=== PATIENT | male | born 1940 | race Caucasian/White ===

== ENCOUNTER 2020-09-11 15:34 | Outpatient (CLI) | payer MEDICARE, BC, SELFPAY ==
[2020-09-11 16:29] LABS: Basophils % 0.6 %; Eosinophils # 0.1 10^3/uL (0.0-0.8); Eosinophils % 2.2 %; Hematocrit 38.5 % (42.0-52.0); Hemoglobin 13.1 g/dL (11.7-16.6); Lymphocytes # 1.4 10^3/uL (0.8-4.8); Lymphocytes % 27.3 %; Mean Corpuscular Hemoglobin 31.2 pg (28.0-34.0); Mean Corpuscular Volume 91.7 fL (80-94); Mean Platelet Volume 9.7 fL (7.4-10.4); Monocytes # 0.4 10^3/uL (0.2-0.9); Monocytes % 8.7 %; Neutrophils # 3.08 10^3/uL (1.8-7.7); Neutrophils % 60.8 %; Nucleated Red Blood Cells % 0 %; Platelet Count 166 10^3/cmm (130-400); Red Cell Distribution Width 12.5 % (12.1-15.1); White Blood Count 5.1 10^3/uL (4.0-10.0)
[2020-09-11 16:54] LABS: C Reactive Protein 3.3 mg/L (0.0-4.9)
[2020-09-11 17:39] LABS: Erythrocyte Sedimentation Rate 16 mm/hr (0-10)
[2020-09-12 12:13] LABS: Cyclic Citrullinated Peptide <16 UNITS
[2020-09-12 13:53] LABS: JO-1 Antibody <1.0 NEG AI (<1.0 NEG); SS A Ro Sjogrens Antibody <1.0 NEG AI (<1.0 NEG); SS-B/LA IGG <1.0 NEG AI (<1.0 NEG); Sm/RNP Antibody <1.0 NEG AI (<1.0 NEG)
[2020-09-12 17:43] LABS: Alternaria Alternata (M6) Ige <0.10 kU/L; Alternaria Class 0; Bermuda Class 0; Bermuda Grass (G2) Ige <0.10 kU/L; Cat Dander (E1) Ige 0.72 kU/L; Cat Dander Class 2; Common Ragweed (Short) (W1) Ig <0.10 kU/L; D. Farinae Class 1; Dermatophagoides Class 1; Dermatophagoides Farinae (D2) 0.47 kU/L; Dermatophagoides Pteronyssinus 0.45 kU/L; Dog Dander (E5) Ige 0.87 kU/L; Dog Dander Class 2; Elm (T8) Ige <0.10 kU/L; Elm Class 0; English Plantain (W9) Ige <0.10 kU/L; English Plantain Class 0; House Dust (Greer) (H1) Ige 0.12 kU/L; House Dust (Hollister- Stier) 0.26 kU/L; House Dust Class 0/1; Immunoglobulin E 200 kU/L (<OR=114); Johnson Grass (G10) Ige <0.10 kU/L; Johnson Grass Cl 0; June Grass Class 0; June Grass(Kentucky Blue) (G8) <0.10 kU/L; Lamb'S Quarters (Goose Foot) <0.10 kU/L; Lamb'S Quarters Class 0; Maple (Box Elder) (T1) Ige <0.10 kU/L; Maple Class 0; Meadow Fescue (G4) Ige <0.10 kU/L; Meadow Fescue Class 0; Mucor Racemosus Class 0; Oak (T7) Ige <0.10 kU/L; Oak Class 0; Orchard Grass (Cocksfoot) (G3) <0.10 kU/L; Penicillium Class 0; Penicillium Notatum (M1) Ige <0.10 kU/L; Perennial Rye Grass (G5) Ige <0.10 kU/L; Perennial Rye Grass Class 0; Ragweeed Class 0; Rough Marsh Elder (W16) Ige <0.10 kU/L; Rough Marsh Elder Class 0; Sweet Vernal Class 0; Sweet Vernal Grass (G1) Ige <0.10 kU/L; Timothy Grass (G6) Ige <0.10 kU/L; Timothy Grass Class 0
[2020-09-13 12:33] LABS: Anti-Double Strand DNA AB <1 IU/mL; SCL 70 <1.0 NEG AI (<1.0 NEG)
[2020-09-13 16:58] LABS: Immunoglobulin E 201 kU/L (<OR=114)
[2020-09-13 21:57] LABS: Aspergillus Fumigatus, Igg Ab, 50.3 mg/L (<=102)
== END 2020-09-11 15:35 | disposition home or self-care (01) ==
PROVIDERS: PCP Nurse Practitioner Family; Visit Provider Internal Medicine Pulmonary Disease
DX: J45.909 Unspecified asthma, uncomplicated (principal); M19.90 Unspecified osteoarthritis, unspecified site; R06.02 Shortness of breath
CPT/HCPCS: 36415; 82785; 85025; 85651; 86003; 86140; 86225; 86235; 86431

== ENCOUNTER 2020-09-17 14:53 | Emergency (ER) | payer MEDICARE, BC, SELFPAY ==
[2020-09-17 14:56] VITALS: BMI 21.7
[2020-09-17 15:06] VITALS: BP 142/84; PULSE 68; O2SAT 98
--- NOTE | 2020-09-17 15:06 | XR_ITS ---
WS: [id number] Exam: XR chest 2V* [id number] Date/Time of Exam: 09/17/2020 3:06 PM Reason For Exam: sob Comparison 02/04/2016. The lungs are hyperinflated and clear. Normal cardiomediastinal structures. Regional bony elements ar e intact. Spondylosis of the spine. XR/XR chest 2V* [id number] IMPRESSION: 1. Pulmonary hyperinflation which may indicate COPD. No acute process noted.
--- NOTE | 2020-09-17 15:06 | ECG_ITS ---
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 Measurements Intervals [place] Rate: 63 P: 64 VT: 220 QRS: 57 QRSD: 98 T: 52 QT: 399 QTc: 411 Interpretive Statements SINUS RHYTHM WITH FIRST DEGREE AV BLOCK NONSPECIFIC ST & T-WAVE ABNORMALITY Compared to ECG 02/04/2016 13:59:52 First degree AV block now present T-wave abnormality now present Sinus arrhythmia no longer present Electronically Signed On 09-17-2020 18:35:59 CDT by Anastacia Harris M.D. [id number] f
--- NOTE | 2020-09-17 15:15 | ED_ITS ---
HPI - SOB/Dyspnea General: Chief Complaint: Shortness of Breath/Dyspnea Stated Complaint: DIFFICULTY BREATHING Time Seen by Provider: 09/17/20 15:00 History of Present Illness: HPI Narrative: 80-year-old male presents with shortness of breath/difficulty breathing. Patient has a history of COPD. He was started on Advair 4 days ago. He reports that every time he takes Advair he develops shortness of breath. Patient reports that is better now. He is cesar lly on 2-1/2 L oxygen home O2. He is got no increased fever, cough, chills, chest pain or other systemic complaints. Associated symptoms: Deny abdominal pain, chest pain, fever(s), nausea, palpitations or vomiting Review of Systems Const: Denies: fever(s) or chills ENMT: Denies: throat pain Card: Denies: chest pain or palpitations Resp: Reports: dyspnea and other (Please see HPI) GI: Denies: abdominal pain, nausea or vomiting : Denies: flank pain, difficulty urinating or dysuria Musc: Denies: neck pain or back pain Skin/Breast: Denies: rash or pruritus Neuro: Denies: headache(s) or numbness in extremities Psych: Denies: anxiety or depression PFSH ED PFSH: Medical History COPD (chronic obstructive pulmonary disease) Hearing loss Hypertension Tinnitus Surgical History History of coronary artery stent placement Family History Other CAD (coronary artery disease) Hyperlipidemia Hypertension Denies family history of Diabetes Clotting disorder Dementia Psychiatric illness Chronic kidney disease (CKD) Suicide Anesthesia complication Bleeding disorder Family history of premature coronary artery disease Lung disease Cancer Stroke Social History Smoking and tobacco status: never smoked Second hand smoke exposure: No Smoking risk assessment/counseling performed?: Yes Alcohol intake: never Desire information about alcohol rehabilitation?: No Counseling given: No Desire information about substance/drug rehabilitation?: No Counseling given: No Lives independently: Yes Household members: spouse Marital status: service: Yes Current occupational status: retired and disabled Pets and animals: No History of recent travel: No Current gender identity: Male Physical Exam Const: COMMON NORMALS: no acute distress, average body habitus and alert GENERAL APPEARANCE: well kempt Chest: COMMONS NORMALS: normal inspection of the chest Resp: COMMON NORMALS: normal respiratory effort, No use of accessory muscles and clear to auscultation bilaterally EFFORT & INSPECTION: Yes able to speak in complete sentences AUSCULTATION: clear to auscultation bilaterally Cardio: COMMON NORMALS: regular rate and regular rhythm RATE: regular rate RHYTHM: regular rhythm GI: COMMON NORMALS: Soft to palpation and non-tender PALPATION: Yes Soft to palpation Extremity: COMMON NORMALS: normal to inspection, full ROM and capillary refill normal Neuro: COMMON NORMALS: no focal motor deficits and no sensory deficits noted SENSORIUM/ORIENTATION: Yes alert Psych: COMMON NORMALS: Normal thought process present, normal affect and speech normal APPEARANCE: Yes well kempt SPEECH: Yes normal speech THOUGHT PROCESS: Normal thought process present Skin: COMMON NORMALS: no rashes or lesions noted GENERAL SKIN EXAM: no rashes or lesions noted Course Vital Signs: Vital signs: Vital Signs Pulse Rate 69 09/17/20 16:56 Respiratory Rate 18 09/17/20 15:30 Blood Pressure 103/75 09/17/20 16:56 Pulse Oximetry 100 09/17/20 16:56 MDM - SOB/Dyspnea MDM Narrative: Medical decision making narrative: Patient is symptom-free throughout his stay in the ER. Patient's oxygen has been in the mid upper 90s while on his baseline 2-1/2 L oxygen. Discussed with patient that he can hold off on his Advair until he sees his primary care provider to review his symptoms. Patient stable and discharged home Lab Data: Attestation: I reviewed the patient's lab results. Labs: Lab Results 09/17/20 09/17/20 Range/Units 14:15 14:15 WBC 6.1 (4.0-10.0) 10^3/ uL RBC 4.22 (4.1-5.3) 10^6/u L Hgb 13.2 (11.7-16.6) g/dL Hct 37.2 L (42.0-52.0) % MCV 88.2 (80-94) fL MCH 31.3 (28.0-34.0) pg MCHC 35.5 (30.0-36.0) g/dL RDW 12.3 (12.1-15.1) % Plt Count 192 (130-400) 10^3/c mm MPV 10.3 (7.4-10.4) fL Neut % (Auto) 71.3 % Lymph % (Auto) 20.3 % [place] % (Auto) 6.5 % Eos % (Auto) 1.1 % Baso % (Auto) 0.5 % Neut # (Auto) 4.35 (1.8-7.7) 10^3/u L Lymph # (Auto) 1.2 (0.8-4.8) 10^3/u L [place] # (Auto) 0.4 (0.2-0.9) 10^3/u L Eos # (Auto) 0.1 (0.0-0.8) 10^3/u L Baso # (Auto) 0.0 (0.0-0.1) 10^3/u L Nucleated RBC % (a uto) 0 % Nucleated RBCs # 0.0 /100WBC Sodium 137 (136-145) mmol/L Potassium 4.0 (3.5-5.1) mmol/L Chloride 102 (98-107) mmol/L Carbon Dioxide 25 (22-29) mmol/L Anion Gap 14.0 (5-19) BUN 10 (8-23) mg/dL Creatinine 0.6 L (0.7-1.2) mg/dL GFR Calculation Not Reportable Glucose 125 H (65-115) mg/dL Calculated Osmolal ity 285 (285-295) mOsm/k g Calcium 8.6 (8.5-10.5) mg/dL Magnesium 2.3 (1.7-2.3) mg/dL Imaging Data^: CXR: Attestation: I personally reviewed and interpreted this imaging study as fo llows: My impression: No acute changes Radiologist's impression: COPD hyperinflation EKG Data^: EKG 1: EKG Interpretation Date: 09/17/20 EKG interpretation time: 15:22 Interpretation: Heart rate 63, sinus, MO interval 220, nonspecific ST changes, no acute finding Discharge Plan Discharge Patient Disposition: Home Clinical Impression: COPD (chronic obstructive pulmonary disease) Qualifiers: COPD type: emphysema Emphysema type: other Qualified Code(s): J43.8 - Other emphysema Condition: Stable Prescriptions: No Action metoprolol tartrate 25 mg tablet See Rx Instructions .ROUTE .COMPLEX RF: 0 budesonide 0.5 mg/2 mL suspension for nebulization 0.5 mg inhalation BID RF: 0 alprazolam 1 mg tablet 0.5 mg PO QID PRN (Reason: Anxiety) RF: 0 cholecalciferol (vitamin D3) 25 mcg (1,000 unit) tablet 25 mcg PO DAILY RF: 0 multivitamin [One Daily Multivitamin] Tablet 1 tab PO DAILY RF: 0 aspirin 81 mg tablet,chewable 81 mg PO DAILY RF: 0 montelukast [Singulair] 10 mg tablet 10 mg PO DAILY Qty: 30 RF: 3 hydrocodone-acetaminophen [Narvon] 10-325 mg tablet 1 tab PO Q8H PRN (Reason: Pain) RF: 0 Advair HFA 115-21 mcg/actuation HFA aerosol inhaler 2 puff inhalation BID Qty: 12 RF: 3 polyethylene glycol 3350 17 gram/dose powder 17 g PO DAILY PRN (Reason: Constipation) RF: 0 Discharge Orders: Discharge ED (Routine); Ordered 09/17/20 Ordered By: Benigno Lewis Referrals: Daniele,HILARIO Berrios [Primary Care Provider] - Discharge Diet: Usual diet Discharge Activity: Resume usual activity Patient Instructions: COPD - Emphysema, Opioid Safety Activity Restrictions/Additional Instructions: Hold your Advair until you follow-up with your primary care provider Follow-up with your primary care provider and 2 to 3 days Coding Level of Care Code ED 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
[2020-09-17 15:21] LABS: Basophils % 0.5 %; Eosinophils # 0.1 10^3/uL (0.0-0.8); Eosinophils % 1.1 %; Hematocrit 37.2 % (42.0-52.0); Hemoglobin 13.2 g/dL (11.7-16.6); Lymphocytes # 1.2 10^3/uL (0.8-4.8); Lymphocytes % 20.3 %; Mean Corpuscular HGB Conc 35.5 g/dL (30.0-36.0); Mean Corpuscular Hemoglobin 31.3 pg (28.0-34.0); Mean Corpuscular Volume 88.2 fL (80-94); Mean Platelet Volume 10.3 fL (7.4-10.4); Monocytes # 0.4 10^3/uL (0.2-0.9); Monocytes % 6.5 %; Neutrophils # 4.35 10^3/uL (1.8-7.7); Neutrophils % 71.3 %; Nucleated Red Blood Cells % 0 %; Platelet Count 192 10^3/cmm (130-400); Red Blood Count 4.22 10^6/uL (4.1-5.3); Red Cell Distribution Width 12.3 % (12.1-15.1); White Blood Count 6.1 10^3/uL (4.0-10.0)
[2020-09-17 15:30] VITALS: BP 138/76; PULSE 67; RESP 18; O2SAT 99
[2020-09-17 15:35] LABS: Blood Urea Nitrogen 10 mg/dL (8-23); Calcium 8.6 mg/dL (8.5-10.5); Carbon Dioxide 25 mmol/L (22-29); Chloride 102 mmol/L (98-107); Glucose 125 mg/dL (65-115); Magnesium 2.3 mg/dL (1.7-2.3); Osmolality Calculated 285 mOsm/kg (285-295); Sodium 137 mmol/L (136-145)
[2020-09-17 16:56] VITALS: BP 103/75; PULSE 69; O2SAT 100
== END 2020-09-17 16:55 | disposition home or self-care (01) ==
PROVIDERS: Emergency Provider Student in an Organized Health Care Education/Training Program; PCP Nurse Practitioner Family
DX: J43.8 Other emphysema (principal); Z79.82 Long term (current) use of aspirin; I10 Essential (primary) hypertension
CPT/HCPCS: 71046; 80048; 83735; 85025; 93005; 99283

== ENCOUNTER → 2021-03-07 11:20 | Outpatient (BNVA) | payer MEDICARE, BC, SELFPAY | PROVIDERS: PCP Nurse Practitioner Family; Visit Provider Internal Medicine Pulmonary Disease | DX: Z20.822 Contact with and (suspected) exposure to COVID-19 (principal); R91.8 Other nonspecific abnormal finding of lung field | CPT/HCPCS: 87635 ==

== ENCOUNTER 2021-03-14 13:38 | Outpatient (CLI) | payer MEDICARE, BC, SELFPAY ==
--- NOTE | 2021-03-14 14:14 | PFTS_ITS ---
Date of Study:03/14/21 Date of Dictation: MECHANICS: Forced vital capacity (FVC) is normal. Forced expiratory volume in one second (FEV1) is normal. FEV1/FVC is normal. FLOW VOLUME LOOP: Normal. LUNG VOLUMES: Total lung capacity (TLC) is mildly reduced. Residual volume (RV) is mildly reduced. DIFFUSING CAPACITY FOR CARBON MONOXIDE: Normal. INTERPRETATION: The prebronchodilator spirometry is normal. Lung volume measurements showed minimal restriction. Gas exchange (DLCO) is normal. MTDD
== END 2021-03-14 13:39 | disposition home or self-care (01) ==
LOC: RT 13:42
PROVIDERS: PCP Nurse Practitioner Family; Visit Provider Internal Medicine Pulmonary Disease
DX: R06.02 Shortness of breath (principal)
CPT/HCPCS: 94010; 94618; 94726; 94729

== ENCOUNTER 2021-06-02 13:31 | Emergency (ER) | payer MEDICARE, BC, SELFPAY ==
--- NOTE | 2021-06-02 13:39 | CTR_ITS ---
PROCEDURE INFORMATION: Exam: CT Abdomen And Pelvis With Contrast Exam date and time: 06/02/2021 1:39 PM Age: 80 years old Clinical indication: Nausea; Abdominal pain; Localized; Right lower quadrant (rlq); Additional info: Abd pain TECHNIQUE: Imaging protocol: Computed tomography of the abdomen and pelvis with contrast. Sagittal and coronal reformatted images were created and reviewed. Radiation optimization: All CT scans at this facility use at least one of these dose optimization techniques: automated exposure control; mA and/or kV adjustment per patient size (includes targeted exams where dose is matched to clinical indication); or iterative reconstruction. Contrast material: OMNI 300; Contrast volume: 95 ml; Contrast route: INTRAVENOUS (IV); COMPARISON: No relevant prior studies available. RADIATION DOSE METRICS: Total DLP (mGy-cm): 1569.13 FINDINGS: Limitations: Study limited by motion artifact. Lungs: Dependent atelectasis in the lungs bilaterally. Pleural spaces: No pleural effusion. Heart: Visualized portions of the heart are moderately enlarged. Extensive atherosclerotic calcification in the coronary arteries. Liver: The liver is unremarkable. Gallbladder and bile ducts: The gallbladder is unremarkable. No biliary ductal dilatation. Pancreas: The pancreas is unremarkable. No pancreatic ductal dilatation. Spleen: The spleen is unremarkable. Adrenal glands: The right and left adrenal glands are unremarkable. Kidneys and ureters: The right and left kidneys are unremarkable. The right and left ureters are unremarkable. Stomach and bowel: Small hiatal hernia. Calcification adjacent to the proximal sigmoid colon that may represent sequela of remote epiploic appendagitis. Fluid within the small bowel and colon without evidence of bowel wall thickening. Appendix: The appendix is visualized and is unremarkable. No findings to suggest acute appendicitis. Intraperitoneal space: No free intraperitoneal air. No ascites. No loculated fluid collections to suggest an abscess. Vasculature: Mild atherosclerotic changes in the visualized arteries. No evidence for aortic aneurysm or aortic dissection. Hepatic veins, portal veins, splenic vein, and SMV are patent. Incidental note of a retroaortic left renal vein. Lymph nodes: No lymphadenopathy. Urinary bladder: The bladder is unremarkable. Reproductive: Unremarkable as visualized. Bones/joints: Degenerative changes in the spine, sacroiliac joints, and hips. Moderate to severe spinal canal stenosis at L2-L3, L3-L4, and L4-L5. Multilevel foraminal stenosis of varying severity in the lumbar spine. Soft tissues: No acute abnormality in the extra-abdominal soft tissues. CT/CT abdomen pelvis w con* [id number] IMPRESSION: 1. Fluid within the small bowel and colon without evidence of bowel wall thickening. This may reflect viral gastroenteritis in the appropriate clinical situation. 2. Small hiatal hernia. 3. Incidental/nonacute findings are listed in the report.
[2021-06-02 13:40] VITALS: BP 143/77; PULSE 86; RESP 15; TEMP 36.8; O2SAT 97; BMI 23.7
--- NOTE | 2021-06-02 13:40 | ECG_ITS ---
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 Measurements Intervals [place] Rate: 79 P: 43 VT: 229 QRS: 1 QRSD: 99 T: 55 QT: 358 QTc: 412 Interpretive Statements SINUS RHYTHM WITH FIRST DEGREE AV BLOCK POSSIBLE RIGHT VENTRICULAR CONDUCTION DELAY [RSR (QR) IN V1/V2] NONSPECIFIC ST & T-WAVE ABNORMALITY Compared to ECG 09/17/2020 15:22:59 No significant changes Electronically Signed On 06-03-2021 5:09:03 [employer] by Anastacia Harris M.D. [email or web address].[employer]/store/[id number] f
[2021-06-02 15:04] LABS: Basophils % 0.3 %; Eosinophils % 0.4 %; Hematocrit 40.2 % (42.0-52.0); Hemoglobin 13.7 g/dL (11.7-16.6); Lymphocytes % 8.6 %; Mean Corpuscular HGB Conc 34.1 g/dL (30.0-36.0); Mean Corpuscular Hemoglobin 31.1 pg (28.0-34.0); Mean Corpuscular Volume 91.4 fl (80-94); Mean Platelet Volume 9.7 fL (7.4-10.4); Monocytes # 0.7 10^3/uL (0.2-0.9); Monocytes % 5.9 %; Neutrophils # 9.47 10^3/uL (1.8-7.7); Neutrophils % 84.5 %; Nucleated Red Blood Cells % 0 %; Platelet Count 164 10^3/cmm (130-400); Red Cell Distribution Width 11.9 % (12.1-15.1); White Blood Count 11.2 10^3/uL (4.0-10.0)
[2021-06-02] MEDS: pantoprazole 40 mg SDV 80 MG IVP (15:20)
[2021-06-02 15:24] LABS: Alanine Aminotransferase 13 U/L (0-41); Albumin Level 4.5 g/dL (3.5-5.2); Alkaline Phosphatase 59 IU/L (40-130); Anion Gap 19.8 (5-19); Aspartate Amino Transferase 19 U/L (0-40); Blood Urea Nitrogen 16 mg/dL (8-23); Calcium 9.9 mg/dL (8.5-10.5); Carbon Dioxide 25 mmol/L (22-29); Chloride 102 mmol/L (98-107); Globulin 2.3 g/dL (1.3-4.6); Glucose 121 mg/dL (65-115); Lipase 15 U/L (13-60); Osmolality Calculated 298 mOsm/kg (285-295); Potassium 3.8 mmol/L (3.5-5.1); Sodium 143 mmol/L (136-145); Total Bilirubin 1.4 mg/dL (0.15-1.2); Total Protein 6.8 g/dL (6.6-8.7)
[2021-06-02 15:25] LABS: Troponin(5th) Baseline 15 ng/L (0-15)
--- NOTE | 2021-06-02 15:40 | ECG_ITS ---
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 [id number]
--- NOTE | 2021-06-02 16:11 | W.ED.GENADLT ---
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 Patient says that for the last few days, he has noticed a right lower quadrant bulge and has had mild pain there. Patient says that the bulge is reducible. Patient denies any nausea/vomiting, fever/chills, decrease in flatus, melena/hematochezia. He has had multiple episodes of dark stools throughout the day. Denies any urinary complaints. Denies any chest pain, shortness breath, palpitation or lightheadedness. The RLQ abdominal pain became more painful yesterday night. Patient tells me he has had hernia related palin for the last year intermittently and is concerned that his mesh may be failing. Onset:3-4 days ago Duration:ongoing Location:home Severity:moderate Associated symptoms: Deny chest pain, dyspnea, nausea, rash, palpitations or vomiting Review of Systems Const: Denies: fever(s) or chills Eyes: Denies: change in vision ENMT: Denies: mouth pain Card: Denies: chest pain or palpitations Resp: Denies: dyspnea or non-productive cough GI: Reports: abdominal pain (RLQ abdominal pain and bludge) and other (+multiple episodes of dark loose stool); Denies: nausea, vomiting or diarrhea : Denies: dysuria Musc: Denies: extremity pain Skin/Breast: Denies: rash or new lesions Neuro: Denies: weakness in extremities Psych: Reports: other (Normal mood) Pancho/Lymph: Denies: easy bruising PFSH ED PFSH: Medical History COPD (chronic obstructive pulmonary disease) Hearing loss Hypertension Tinnitus Surgical History History of coronary artery stent placement Family History Other CAD (coronary artery disease) Hyperlipidemia Hypertension Denies family history of Diabetes Clotting disorder Dementia Psychiatric illness Chronic kidney disease (CKD) Suicide Anesthesia complication Bleeding disorder Family history of premature coronary artery disease Lung disease Cancer Stroke Social History Smoking and tobacco status: never smoked Second hand smoke exposure: No Smoking risk assessment/counseling performed?: Yes Alcohol intake: never Desire information about alcohol rehabilitation?: No Counseling given: No Desire information about substance/drug rehabilitation?: No Counseling given: No Lives independently: Yes Household members: spouse Marital status: service: Yes Current occupational status: retired and disabled Pets and animals: No History of recent travel: No Current gender identity: Male Physical Exam Const: COMMON NORMALS: alert HENMT: COMMON NORMALS: atraumatic HEAD & SCALP: atraumatic MOUTH: moist mucous membranes not abnormal Eye: COMMON NORMALS: EOMs intact bilaterally and conjunctivae normal CONJUNCTIVA: Yes conjunctivae normal Neck/C-Spine: COMMON NORMALS: full ROM and supple Resp: COMMON NORMALS: normal respiratory effort and clear to auscultation bilaterally AUSCULTATION: clear to auscultation bilaterally Cardio: COMMON NORMALS: regular rate RATE: regular rate GI: COMMON NORMALS: Soft to palpation and non-tender PALPATION: Yes Soft to palpation OTHER: No focal TTP. No abdominal buldge. No guarding rebound, guarding, rigidity. No CVA tenderness to percussion. Neg Broussard/Neg McBurney's point tenderness, no suprabupic tenderness to palpation. RECTAL: +hemoocult negative dark loose stool Extremity: COMMON NORMALS: full ROM Neuro: SENSORIUM/ORIENTATION: Yes alert MOTOR EXAM: No Abnormal motor strength present and Other motor observations present (no focal motor deficits) Psych: COMMON NORMALS: speech normal SPEECH: Yes normal speech MOOD & AFFECT: Yes euthymic mood Course Vital Signs: Vital signs: Vital Signs Temperature 98.2 F 06/02/21 13:40 Pulse Rate 99 06/02/21 18:21 Respiratory Rate 16 06/02/21 18:21 Blood Pressure 151/87 06/02/21 18:10 Pulse Oximetry 97 06/02/21 18:21 [facility] - General Adult Medical Decision Making 80-year-old male history of multiple mesh repairs hernia, CAD with stent x7 presents the emergency room with complaints of lower abdominal pain with abdominal swelling. On exam, patient is afebrile hemodynamically stable, no focal tenderness palpation, no palpable bulge. Hemoccult negative loose dark stool noted. Lab work-up showed white count 11.2. Hemoglobin appears to be stable at 13.7. Stool culture sent. Fecal occult positive. Patient is able to tolerate p.o. without difficulty. Patient status post IVF. Given reassuring hemoglobin and dark stool, and findings on CT consistent with colitis, this is likely GI infection and unlikely to be upper GI bleeding. I will stillrefer patient to repeat hemoglobin and possible EGD in the next week. CT of pelvis not show any focal findings of pathology. Considered broad diagnosis including appendicitis,diverticulitis, cholecystitis, colitis, volvulus, obstruction, ileus, UTI, and other abdominal pathology, however, given physical exam and workup today, there is low, although, not zero suspicion for these diagnoses. Patient advised and given appropriate return precations, including continued or new fever, vomiting, abdominal pain, or any other concerning signs or symptoms. Rx tylenol PRN abd pain, maalox/pepcid PRN dyspepsia, and zofran PRN nausea/vomiting I have given patient follow up with our case management manager to be seen by our PCP for diarrhea and loose stool and possible referral to get an EGD. Patient aware of a call from our case management manager to schedule for appointment(s) and verbalizes understanding of the importance of following up. Disposition: Discharge. Patient counseled regarding diagnostic impression, treatment plan. Patient given ED strict return precautions to return for continuation, worsening, or development of new symptoms. Instructed to f/u w/ PCP regarding symptoms today. Patient verbalized understanding. Lab Data : 06/02/21 14:46 06/02/21 14:46 Radiology Impressions Abdomen/Pelvis CT 06/02/21 13:39 IMPRESSION: 1. Fluid within the small bowel and colon without evidence of bowel wall thickening. This may reflect viral gastroenteritis in the appropriate clinical situation. 2. Small hiatal hernia. 3. Incidental/nonacute findings are listed in the report. Laboratory Results WBC 11.2 10^3/uL (4.0-10.0) H 06/02/21 14:46 RBC 4.40 10^6/uL (4.1-5.3) 06/02/21 14:46 Hgb 13.7 g/dL (11.7-16.6) 06/02/21 14:46 Hct 40.2 % (42.0-52.0) L 06/02/21 14:46 MCV 91.4 fl (80-94) 06/02/21 14:46 MCH 31.1 pg (28.0-34.0) 06/02/21 14:46 MCHC 34.1 g/dL (30.0-36.0) 06/02/21 14:46 RDW 11.9 % (12.1-15.1) L 06/02/21 14:46 Plt Count 164 10^3/cmm (130-400) 06/02/21 14:46 MPV 9.7 fL (7.4-10.4) 06/02/21 14:46 Neut % (Auto) 84.5 % 06/02/21 14:46 Lymph % (Auto) 8.6 % 06/02/21 14:46 Jerome % (Auto) 5.9 % 06/02/21 14:46 Eos % (Auto) 0.4 % 06/02/21 14:46 Baso % (Auto) 0.3 % 06/02/21 14:46 Neut # (Auto) 9.47 10^3/uL (1.8-7.7) H 06/02/21 14:46 Lymph # (Auto) 1.0 10^3/uL (0.8-4.8) 06/02/21 14:46 Jerome # (Auto) 0.7 10^3/uL (0.2-0.9) 06/02/21 14:46 Eos # (Auto) 0.0 10^3/uL (0.0-0.8) 06/02/21 14:46 Baso # (Auto) 0.0 10^3/uL (0.0-0.1) 06/02/21 14:46 Nucleated RBC % (auto) 0 % 06/02/21 14:46 Nucleated RBCs # 0.0 /100WBC 06/02/21 14:46 Sodium 143 mmol/L (136-145) 06/02/21 14:46 Potassium 3.8 mmol/L (3.5-5.1) 06/02/21 14:46 Chloride 102 mmol/L (98-107) 06/02/21 14:46 Carbon Dioxide 25 mmol/L (22-29) 06/02/21 14:46 Anion Gap 19.8 (5-19) H 06/02/21 14:46 BUN 16 mg/dL (8-23) 06/02/21 14:46 Creatinine 0.7 mg/dL (0.7-1.2) 06/02/21 14:46 GFR Calculation Not Reportable 06/02/21 14:46 Glucose 121 mg/dL (65-115) H 06/02/21 14:46 Calculated Osmolality 298 mOsm/kg (285-295) H 06/02/21 14:46 Calcium 9.9 mg/dL (8.5-10.5) 06/02/21 14:46 Total Bilirubin 1.4 mg/dL (0.15-1.2) H 06/02/21 14:46 AST 19 U/L (0-40) 06/02/21 14:46 ALT 13 U/L (0-41) 06/02/21 14:46 Alkaline Phosphatase 59 IU/L (40-130) 06/02/21 14:46 Troponin T Baseline 15 ng/L (0-15) 06/02/21 14:46 Troponin T 120 Minute 10.59 ng/L (0-15) 06/02/21 16:55 Delta Troponin T -4.41 ABS# (0-10) L 06/02/21 16:55 Total Protein 6.8 g/dL (6.6-8.7) 06/02/21 14:46 Albumin 4.5 g/dL (3.5-5.2) 06/02/21 14:46 Globulin 2.3 g/dL (1.3-4.6) 06/02/21 14:46 Lipase 15 U/L (13-60) 06/02/21 14:46 Coronavirus 229E (PCR) Not detected (NOT DETECT) 06/02/21 15:46 SARS-CoV-2 (PCR) Not detected (NOT DETECT) 06/02/21 15:46 Imaging Data Other Imaging: Radiologist's impression: [address] [address] [address] Scan Report Signed Patient: Shamar Thapa Unit #: [id number] : 1940 Age/Sex: 80 / M ADM Date: 06/02/21 Loc: ER Room/Bed: Attending Dr: Ordering Provider/Ordering MD: Yara Phillips MD Date of Service: 06/02/21 Procedure(s): CT abdomen pelvis w con* [id number] Accession Number(s): [id number] Report Number: [id number] PROCEDURE INFORMATION: Exam: CT Abdomen And Pelvis With Contrast Exam date and time: 06/02/2021 1:39 PM Age: 80 years old Clinical indication: Nausea; Abdominal pain; Localized; Right lower quadrant (rlq); Additional info: Abd pain TECHNIQUE: Imaging protocol: Computed tomography of the abdomen and pelvis with contrast. Sagittal and coronal reformatted images were created and reviewed. Radiation optimization: All CT scans at this facility use at least one of these dose optimization techniques: automated exposure control; mA and/or kV adjustment per patient size (includes targeted exams where dose is matched to clinical indication); or iterative reconstruction. Contrast material: OMNI 300; Contrast volume: 95 ml; Contrast route: INTRAVENOUS (IV);? COMPARISON: No relevant prior studies available. RADIATION DOSE METRICS: Total DLP (mGy-cm): 1569.13 FINDINGS: Limitations: Study limited by motion artifact. Lungs: Dependent atelectasis in the lungs bilaterally. Pleural spaces: No pleural effusion. Heart: Visualized portions of the heart are moderately enlarged. Extensive atherosclerotic calcification in the coronary arteries. Liver: The liver is unremarkable. Gallbladder and bile ducts: The gallbladder is unremarkable. No biliary ductal dilatation. Pancreas: The pancreas is unremarkable. No pancreatic ductal dilatation. Spleen: The spleen is unremarkable. Adrenal glands: The right and left adrenal glands are unremarkable. Kidneys and ureters: The right and left kidneys are unremarkable. The right and left ureters are unremarkable. Stomach and bowel: Small hiatal hernia. Calcification adjacent to the proximal sigmoid colon that may represent sequela of remote epiploic appendagitis. Fluid within the small bowel and colon without evidence of bowel wall thickening. Appendix: The appendix is visualized and is unremarkable. No findings to suggest acute appendicitis. Intraperitoneal space: No free intraperitoneal air. No ascites. No loculated fluid collections to suggest an abscess. Vasculature: Mild atherosclerotic changes in the visualized arteries. No evidence for aortic aneurysm or aortic dissection. Hepatic veins, portal veins, splenic vein, and SMV are patent. Incidental note of a retroaortic left renal vein. Lymph nodes: No lymphadenopathy. Urinary bladder: The bladder is unremarkable. Reproductive: Unremarkable as visualized. Bones/joints: Degenerative changes in the spine, sacroiliac joints, and hips. Moderate to severe spinal canal stenosis at L2-L3, L3-L4, and L4-L5. Multilevel foraminal stenosis of varying severity in the lumbar spine. Soft tissues: No acute abnormality in the extra-abdominal soft tissues. CT/CT abdomen pelvis w con* [id number] IMPRESSION: 1. Fluid within the small bowel and colon without evidence of bowel wall thickening. This may reflect viral gastroenteritis in the appropriate clinical situation. 2. Small hiatal hernia. 3. Incidental/nonacute findings are listed in the report. ? Dictated By: Vashti Her MD Signed By: Vashti Her MD Signed Date/Time: 06/02/21 180 DD/ 1339 Discharge Plan Discharge Patient Disposition: Home Clinical Impression: Abdominal pain, Diarrhea Condition: Stable Prescriptions: New Pepcid 20 mg tablet 20 mg PO BID PRN (Reason: abdominal pain) 10 Days Qty: 20 0RF Maalox Advanced 1,000-60 mg tablet,chewable 1 tab PO TID PRN (Reason: abdominal pain) 7 Days Qty: 21 0RF No Action metoprolol tartrate 25 mg tablet See Rx Instructions .ROUTE .COMPLEX 0RF Rx Instructions: 50 mg orally in the morning/ 25 mg orally in the evening budesonide 0.5 mg/2 mL suspension for nebulization 0.5 mg inhalation BID 0RF alprazolam 1 mg tablet 0.5 mg PO QID PRN (Reason: Anxiety) 0RF cholecalciferol (vitamin D3) 25 mcg (1,000 unit) tablet 25 mcg PO DAILY 0RF multivitamin [One Daily Multivitamin] Tablet 1 tab PO DAILY 0RF aspirin 81 mg tablet,chewable 81 mg PO DAILY 0RF Trelegy Ellipta 100-62.5-25 mcg blister with device 1 inh inhalation DAILY Qty: 60 3RF Advair HFA 115-21 mcg/actuation HFA aerosol inhaler 2 puff inhalation BID Qty: 12 3RF Rx Instructions: administer with spacer polyethylene glycol 3350 17 gram/dose powder 17 g PO DAILY PRN (Reason: Constipation) 0RF Milk of Magnesia 400 mg/5 mL Suspension 15 ml PO DAILY PRN (Reason: Constipation) 0RF hydrocodone-acetaminophen 10-325 mg Tablet 1 tab PO Q6H PRN (Reason: Pain) 0RF nitroglycerin 0.4 mg Tablet, Sublingual 0.4 mg SUBLINGUAL Q5M PRN (Reason: Chest Pain) 0RF Rx Instructions: do not exceed 3 doses per episode Discharge Orders: Discharge ED (Routine); Ordered 06/02/21 Ordered By: Yara Phillips Referrals: Daniele,HILARIO Berrios [Primary Care Provider] - Discharge Diet: Advance as tolerated Discharge Activity: Increase activity as tolerated Patient Instructions: Acute Diarrhea (ED), Abdominal Pain (ED) Activity Restrictions/Additional Instructions: Please come back if you have any worsening abdominal pain, fever or chills, nausea or vomiting, diarrhea, blood in the stool, inability hold down liquid or solids, or any new concerning complaints. Coding Level of Care Code ED Anesthesiologist/Physician for Chg Fwd Exam Comprehensive
[2021-06-02 17:39] LABS: Adenovirus Not Detected (NOT DETECT); Chlamydia Pneumoniae Not Detected (NOT DETECT); Coronavirus 229E,HKU1,NL63,OC4 Not Detected (NOT DETECT); Human Metapneumovirus Not Detected (NOT DETECT); Human Rhinovirus/Enterovirus Not Detected (NOT DETECT); Influenza A Not Detected (NOT DETECT); Influenza A H1 Not Detected (NOT DETECT); Influenza A H1-2009 Not Detected (NOT DETECT); Influenza A H3 Not Detected (NOT DETECT); Influenza B Not Detected (NOT DETECT); Mycoplasma Pneumoniae Not Detected (NOT DETECT); Parainfluenza Virus Type 1 Not Detected (NOT DETECT); Parainfluenza Virus Type 2 Not Detected (NOT DETECT); Parainfluenza Virus Type 3 Not Detected (NOT DETECT); Parainfluenza Virus Type 4 Not Detected (NOT DETECT); Respiratory Syncytial Virus A Not Detected (NOT DETECT); Respiratory Syncytial Virus B Not Detected (NOT DETECT); SARS-COV-2 Not Detected (NOT DETECT)
[2021-06-02] MEDS: iohexol 300 mg/mL 100 mL Btl IV (17:41)
[2021-06-02 18:08] VITALS: RESP 16; O2SAT 96
[2021-06-02] MEDS: morphine 4 mg/mL SDV 1 mL 2 MG IVP (18:08)
[2021-06-02 18:10] VITALS: BP 151/87; PULSE 103; RESP 16; O2SAT 97
[2021-06-02 18:21] VITALS: PULSE 99; RESP 16; O2SAT 97
[2021-06-02 18:30] LABS: Troponin 5 2HR 10.59 ng/L (0-15)
[2021-06-02 18:31] LABS: Troponin 5 2HR Delta -4.41 ABS# (0-10)
== END 2021-06-02 20:11 | disposition home or self-care (01) ==
PROVIDERS: Emergency Provider Emergency Medicine; PCP Nurse Practitioner Family
DX: R10.9 Unspecified abdominal pain (principal); R19.7 Diarrhea, unspecified; Z79.82 Long term (current) use of aspirin; J44.9 Chronic obstructive pulmonary disease, unspecified; I10 Essential (primary) hypertension; I25.10 Atherosclerotic heart disease of native coronary artery without angina pectoris; Z20.822 Contact with and (suspected) exposure to COVID-19
CPT/HCPCS: 74177; 80053; 82274; 83630; 83690; 84484; 85025; 87493; 87506; 87635; 93005; 96374; 96375; 99284; C9113; J2270; Q9967

== ENCOUNTER → 2021-06-25 10:26 | Outpatient (BNVA) | payer MEDICARE, BC, SELFPAY | PROVIDERS: PCP Nurse Practitioner Family; Visit Provider Nurse Practitioner Family | DX: J44.9 Chronic obstructive pulmonary disease, unspecified (principal); I10 Essential (primary) hypertension; R53.83 Other fatigue; Z11.59 Encounter for screening for other viral diseases; M79.10 Myalgia, unspecified site; M25.50 Pain in unspecified joint; M19.90 Unspecified osteoarthritis, unspecified site; J06.9 Acute upper respiratory infection, unspecified; R05.9 Cough, unspecified; J40 Bronchitis, not specified as acute or chronic; J02.9 Acute pharyngitis, unspecified | CPT/HCPCS: 80053; 82306; 82607; 82746; 83540; 83550; 85025; 85651; 86140; 86200; 86431; 86705; 86706; 86709; 86803; 87340 ==

== ENCOUNTER 2021-07-29 15:45 | Outpatient (CLI) | payer MEDICARE, BC, SELFPAY ==
--- NOTE | 2021-07-29 16:00 | CT_ITS ---
WS: [id number] CT CHEST TECHNIQUE: Noncontrast CT of the chest with coronal and sagittal reformatted images. CLINICAL INFORMATION: h/o pulm nodule COMPARISON: CT 2 DLP: 628.[address] scans at [facility] use at least one of these dose optimization techniques: automated e xposure control; mA and/or kV adjustment per patient size (includes targeted exams where dose is matc hed to clinical indication); or iterative reconstruction. FINDINGS: 4 noncalcified pulmonary nodules RIGHT lung apex range in size from 7 and 9 mm not significantly zaragoza ged since 2017. Moderate chronic emphysematous changes. Subsegmental atelectasis in the lung bases. N o focal consolidation or pleural fluid. A few calcified granulomas. Aortic calcification. Coronary calcification. Coronary stents. No axillary lymphadenopathy. Adrenal glands are normal. Small esophageal hiatal hernia. Ankylosis thoracic spine. CT/CT chest con [id number] IMPRESSION: 1. 4 noncalcified pulmonary nodules RIGHT lung apex unchanged since 2017 rangi ng in size from 7-9 mm. 2. Moderate chronic emphysematous changes. Slight bibasilar atelectasis. 3. No mediastinal or hilar lymphadenopathy. 4. Ankylosis thoracic spine.
== END 2021-07-29 15:46 | disposition home or self-care (01) ==
LOC: RAD 15:47
PROVIDERS: PCP Nurse Practitioner Family; Visit Provider Internal Medicine Pulmonary Disease
DX: R91.8 Other nonspecific abnormal finding of lung field (principal); M43.24 Fusion of spine, thoracic region
CPT/HCPCS: 71250

== ENCOUNTER 2021-11-12 01:39 | Emergency (ER) | payer MEDICARE, BC, SELFPAY ==
--- NOTE | 2021-11-12 01:41 | ED_ITS ---
HPI - Syncope General: Chief Complaint: Syncope Stated Complaint: snycope Time Seen by Provider: 11/12/21 01:40 History of Present Illness: Mr. Thapa is an 81-year-old gentleman with sig nificant past medical history of hearing loss, hypertension, hyperlipidemia, COPD with intermittently at home oxygen use, memory deficit who presents to the emergency department due to syncope. He reports being at his baseline health and after dinner had a new ice cream. Sometime later he subsequently developed rash which was itchy on his chest as well as swelling in his hands. He took 75 mg of Benadryl at home which improved symptoms. EMS was activated however patient declined transport and was observed for approximately 1 hour. After going to bed he had urged to have a bowel movement and subsequently had either full syncope or near syncope in the bathroom. He feels like he remembers the event and just felt weak however upon EMS arrival patient was hypotensive, pale, and appeared mildly confused. Patient has subsequently improved with IV fluids though feels cold all over. Denies similar episodes/allergic reactions in the past. Density symptoms at worst was moderate to severe. Course is improved. No other specific changes in health, exacerbating, or alleviating factors luke ntified. Onset (ago): hour(s) Prodromal symptoms: lightheaded Context: other Review of Systems General: Reports: 10 or more systems reviewed and unremarkable except in HPI and below PFSH ED PFSH: Medical History Anxiety Arthritis COPD (chronic obstructive pulmonary disease) Dehydration, mild Family history of Alzheimer's disease Hearing loss Hypertension Memory deficit Seborrheic keratosis Syncope Tinnitus Surgical History History of coronary artery stent placement Family History Other CAD (coronary artery disease) Hyperlipidemia Hypertension Memory deficit Denies family history of Diabetes Clotting disorder Dementia Psychiatric illness Chronic kidney disease (CKD) Suicide Anesthesia complication Bleeding disorder Family history of premature coronary artery disease Lung disease Cancer Stroke Social History Smoking and tobacco status: never smoked Second hand smoke exposure: No Smoking risk assessment/counseling performed?: Yes Alcohol intake: never Desire information about alcohol rehabilitation?: No Counseling given: No Desire information about substance/drug rehabilitation?: No Counseling given: No Lives independently: Yes Household members: spouse Marital status: service: Yes Current occupational status: retired and disabled Pets and animals: No History of recent travel: No Current gender identity: Male Physical Exam Const: COMMON NORMALS: patient oriented x3 and alert GENERAL APPEARANCE: cooperative and well developed HENMT: COMMON NORMALS: normocephalic and atraumatic HEAD & SCALP: normocephalic and atraumatic THROAT: posterior oropharynx normal OTHER: No luong signs or raccoon eyes. No hemotympanum. No otorrhea or rhinorrhea. Jaw alignment normal. Dentition baseline. No obvious bony step-offs. No septal hematoma. No evidence of ocular entrapment. Eye: COMMON NORMALS: conjunctivae normal CONJUNCTIVA: Yes conjunctivae normal SCLERA: sclerae normal Neck/C-Spine: COMMON NORMALS: supple GENERAL: Yes trachea midline Resp: COMMON NORMALS: normal respiratory effort and clear to auscultation bi laterally EFFORT & INSPECTION: Yes able to speak in complete sentences AUSCULTATION: clear to auscultation bilaterally Cardio: COMMON NORMALS: regular rate and regular rhythm RATE: regular rate RHYTHM: regular rhythm GI: COMMON NORMALS: Soft to palpation PALPATION: Yes Soft to palpation and No Tenderness to palpation present (GI) PERCUSSION: normal to percussion Extremity: GENERAL: Yes normal exam except as noted and No edema Neuro: COMMON NORMALS: patient oriented x3, CN's II-XII intact bilaterally, moves all extremities, no focal motor deficits and no sensory deficits noted SENSORIUM/ORIENTATION: Yes alert and No Orientation impaired Psych: COMMON NORMALS: mental status grossly normal and Normal thought process present THOUGHT PROCESS: Normal thought process present Course ED course: - Patient was seen and evaluated by me at bedside - Patient placed on cardiac monitors, IV access obtained - Initial evaluation notable for exam as exam as above - Labs and xrays personally interpreted by me. EKG with sinus rhythm, no STEMI. - Fluids and allergic reaction treatment given - Labs notable for no leukocytosis, normal hemoglobin. Metabolic panel without acute derangement. negative 2 hr troponin - Imaging notable for negative head ct. no traumatic injury on cervical spine CT. Chest x-ray without consolidation or pneumothorax. - Upon serial reexamination after treatment the patient was improved - Based on patient history, evaluation, and testing as interpreted the most likely cause of the patient's condition is syncope of unclear etiology. - The results of ED evaluation were discussed with the patient including possible disposition options. Patient comfortable with discharge with strict return cautions. I discussed prescriptions and/or symptomatic cares (if applicable) including appropriate and responsible use, followup plan, and return precautions. The patient verbalized understanding and felt safe for discharge. - Patient discharged in satisfactory condition. Note: Click bubbles or prepopulated hua in note writing are used for assistance with data collection and billing and are inherently more limited than narrative and other text portions of this note. Please use narrative for additional clinical history and defer to narrative/free test for any case of contradictory information. If information appears in only free text or click bubble it should be considered present or absent as reported. Please contact note magnetic tape typewriter operator for clarifications of clinical information or contradictory information. MDM is a brief summary, contradictory or erroneous seeming information should be clarified and full note should be reviewed. Vital Signs: Vital signs: Vital Signs Pulse Rate 90 11/12/21 08:15 Respiratory Rate 19 H 11/12/21 08:15 Blood Pressure 143/70 11/12/21 08:15 Pulse Oximetry 95 11/12/21 08:15 Oxygen Delivery Me thod 11/12/21 08:15 MDM - Syncope Medical Decision Making 81-year-old gentleman presenting with syncope in context of profound like a recent allergic reaction. Improved with treatment. Satisfactory for outpatient management with strict return cautions. Medical Records I reviewed the patient's medical records. Lab Data I reviewed the patient's lab results. : 11/12/21 01:57 11/12/21 01:57 Radiology Impressions Chest X-Ray 11/12/21 01:48 IMPRESSION: No acute findings. Head CT 11/12/21 01:49 IMPRESSION: No noncontrast CT evidence of posttraumatic intracranial abnormality. Cervical Spine CT 11/12/21 01:53 IMPRESSION: No fractures of the cervical spine. Degenerative changes of the cervical spine, most prominent at the C5-C6 level, as noted above. Laboratory Results WBC 9.1 10^3/uL (4.0-10.0) 11/12/21 01:57 RBC 4.42 10^6/uL (4.1-5.3) 11/12/21 01:57 Hgb 13.9 g/dL (11.7-16.6) 11/12/21 01:57 Hct 39.6 % (42.0-52.0) L 11/12/21 01:57 MCV 89.6 fl (80-94) 11/12/21 01:57 MCH 31.4 pg (28.0-34.0) 11/12/21 01:57 MCHC 35.1 g/dL (30.0-36.0) 11/12/21 01:57 RDW 12.2 % (12.1-15.1) 11/12/21 01:57 Plt Count 172 10^3/cmm (130-400) 11/12/21 01:57 MPV 9.9 fL (7.4-10.4) 11/12/21 01:57 Neut % (Auto) 83.4 % 11/12/21 01:57 Lymph % (Auto) 10.8 % 11/12/21 01:57 [place] % (Auto) 4.7 % 11/12/21 01:57 Eos % (Auto) 0.7 % 11/12/21 01:57 Baso % (Auto) 0.1 % 11/12/21 01:57 Neut # (Auto) 7.58 10^3/uL (1.8-7.7) 11/12/21 01:57 Lymph # (Auto) 1.0 10^3/uL (0.8-4.8) 11/12/21 01:57 [place] # (Auto) 0.4 10^3/uL (0.2-0.9) 11/12/21 01:57 Eos # (Auto) 0.1 10^3/uL (0.0-0.8) 11/12/21 01:57 Baso # (Auto) 0.0 10^3/uL (0.0-0.1) 11/12/21 01:57 Nucleated RBC % (auto) 0 % 11/12/21 01:57 Nucleated RBCs # 0.0 /100WBC 11/12/21 01:57 Specimen Type Arterial 11/12/21 05:50 Sample Site Radial, right 11/12/21 05:50 ABG pH 7.40 (7.35-7.45) 11/12/21 05:50 ABG pCO2 41.0 mmHg (35-45) 11/12/21 05:50 ABG pO2 67.7 mmHg (80.0-100.0) L 11/12/21 05:50 ABG HCO3 25.2 mmol/L (22-26) 11/12/21 05:50 ABG Base Excess 0.3 mmol/L (-2.0-2.0) 11/12/21 05:50 Chaim Test Pos 11/12/21 05:50 Hematocrit 42.7 % (42-52) 11/12/21 05:50 O2 Delivery Device None 11/12/21 05:50 Golf Course Architect ID Hensa 11/12/21 05:50 Sodium 135 mmol/L (136-145) L 11/12/21 01:57 Potassium 4.1 mmol/L (3.5-5.1) 11/12/21 01:57 Chloride 99 mmol/L (98-107) 11/12/21 01:57 Carbon Dioxide 24 mmol/L (22-29) 11/12/21 01:57 Anion Gap 16.1 (5-19) 11/12/21 01:57 BUN 23 mg/dL (8-23) 11/12/21 01:57 Creatinine 0.9 mg/dL (0.7-1.2) 11/12/21 01:57 GFR Calculation Not Reportable 11/12/21 01:57 Glucose 186 mg/dL (65-115) H 11/12/21 01:57 POC Glucose 174 mg/dL (70-110) H 11/12/21 05:59 Calculated Osmolality 289 mOsm/kg (285-295) 11/12/21 01:57 Calcium 9.1 mg/dL (8.5-10.5) 11/12/21 01:57 Total Bilirubin 0.5 mg/dL (0.15-1.2) 11/12/21 01:57 AST 17 U/L (0-40) 11/12/21 01:57 ALT 12 U/L (0-41) 11/12/21 01:57 Alkaline Phosphatase 66 IU/L (40-130) 11/12/21 01:57 Troponin T Baseline 18 ng/L (0-15) H 11/12/21 01:57 Troponin T 120 Minute 19.46 ng/L (0-15) H 11/12/21 04:10 Delta Troponin T 1.46 ABS# (0-10) 11/12/21 04:10 Troponin T Hi Sens 6Hr 40.62 ng/L (0-15) H 11/12/21 08:07 Troponin T Hi Sens 6Hr Delta 22.62 ng/L (0-12) H* 11/12/21 08:07 C-Reactive Protein 3.0 mg/L (0.0-4.9) 11/12/21 01:57 Total Protein 6.0 g/dL (6.6-8.7) L 11/12/21 01:57 Albumin 4.0 g/dL (3.5-5.2) 11/12/21 01:57 Globulin 2.0 g/dL (1.3-4.6) 11/12/21 01:57 Procalcitonin 0.05 ng/mL (0-0.5) 11/12/21 01:57 TSH 3.09 uIU/mL (0.27-4.20) 11/12/21 01:57 Urine Color Yellow (Yellow) 11/12/21 04:10 Urine Appearance Clear (CLEAR) 11/12/21 04:10 Urine pH 5 (5-7) 11/12/21 04:10 Ur Specific [place] 1.020 (1.005-1.030) 11/12/21 04:10 Urine Protein Trace (Negative) 11/12/21 04:10 Urine Glucose (UA) 2+ (Normal) H 11/12/21 04:10 Urine Ketones 1+ (Negative) H 11/12/21 04:10 Urine Blood Neg (Negative) 11/12/21 04:10 Urine Nitrate Negative (Negative) 11/12/21 04:10 Urine Bilirubin Neg (Negative) 11/12/21 04:10 Urine Urobilinogen Norm mg/dL (Negative) 11/12/21 04:10 Ur Leukocyte Esterase Negative (Negative) 11/12/21 04:10 Urine RBC 0-4 /hpf (0-2) H 11/12/21 04:10 Urine WBC 0-4 /hpf (0-5) H 11/12/21 04:10 Ur Squamous Epith Cells 0-4 /hpf (0-5) H 11/12/21 04:10 Amorphous Sediment Trace /hpf 11/12/21 04:10 Urine Bacteria Trace /hpf (NONE) 11/12/21 04:10 Urine Mucus 2+ /hpf 11/12/21 04:10 Discharge Plan Discharge Patient Disposition: Home Clinical Impression: Syncope, Hypotension, Allergic reaction, Dehydration, mild Condition: Stable Prescriptions: New epinephrine [EpiPen 2-Denilson] 0.3 mg/0.3 mL auto-injector 0.3 mg IM Q15M PRN (Reason: anaphylaxis) Qty: 2 2RF Rx Instructions: for 3 doses No Action aspirin 81 mg tablet,chewable 81 mg PO DAILY alprazolam 1 mg tablet 0.5 mg PO QID PRN (Reason: Anxiety) 30 Days Qty: 120 0RF cholecalciferol (vitamin D3) 50 mcg (2,000 unit) capsule 50 mcg PO DAILY 90 Days Qty: 90 1RF metoprolol tartrate 25 mg tablet See Rx Instructions .ROUTE .COMPLEX Qty: 270 1RF Rx Instructions: 50 mg orally in the morning/ 25 mg orally in the evening PNV no.154-iron fumarate-folic 27 mg iron- 1 mg tablet 2 tab PO DAILY 90 Days Qty: 180 1RF Trelegy Ellipta 100-62.5-25 mcg blister with device 1 inh inhalation DAILY Qty: 60 3RF budesonide 0.5 mg/2 mL suspension for nebulization 0.5 mg inhalation BID Qty: 60 3RF polyethylene glycol 3350 17 gram/dose powder 17 g PO DAILY PRN (Reason: Constipation) magnesium hydroxide [Milk of Magnesia] 400 mg/5 mL Suspension 15 ml PO DAILY PRN (Reason: Constipation) hydrocodone-acetaminophen 10-325 mg Tablet 1 - 2 tab PO Q6H PRN (Reason: Pain) nitroglycerin 0.4 mg Tablet, Sublingual 0.4 mg SUBLINGUAL Q5M PRN (Reason: Chest Pain) Rx Instructions: do not exceed 3 doses per episode cyanocobalamin (vitamin B-12) 1,000 mcg capsule 1,000 mcg PO DAILY Qty: 90 4RF Calcium 600 + D(3) 600 mg-10 mcg (400 unit) tablet 1 tab PO DAILY Qty: 90 0RF Discharge Orders: Discharge ED (Routine); Ordered 11/12/21 Ordered By: Thomas Atwood Referrals: Shoshana Stroud NP [Primary Care Provider] - Discharge Diet: Usual diet Discharge Activity: Resume usual activity Patient Instructions: Dehydration (ED), Syncope (ED), General Allergic Reaction (ED) Activity Restrictions/Additional Instructions: Thank you for visiting the emergency department. You were seen and evaluated for syncope and low blood pressure. The exact cause of your symptoms is u nclear. Allergic reaction may contribute at this and you will be treated for allergic reaction. Please follow-up with your primary care provider within the next few days. Please return to the emergency department for recurrent symptoms or anything else that you are concerned about a feel needs emergency department evaluation. Coding Level of Care Code ED Desktop Publishing Associate for Jovan Lofton
[2021-11-12 01:43] VITALS: PULSE 84; RESP 18; O2SAT 97; BMI 23.0
--- NOTE | 2021-11-12 01:48 | ECG_ITS ---
[facility] Test Date: 2021-11-12 Pat Name: Shamar Thapa Department: Room: Gender: Male Housing Inspectors: : 1940 Requested By: Thomas Atwood Order Number: [id number] Shafer MD: Tony Colindres M.D. Measurements Intervals [place] Rate: 69 P: 48 PA: 233 QRS: 0 QRSD: 91 T: 51 QT: 365 QTc: 392 Interpretive Statements SINUS RHYTHM WITH FIRST DEGREE AV BLOCK NONSPECIFIC T-WAVE ABNORMALITY Compared to ECG 06/02/2021 16:58:13 First degree AV block now present T-wave abnormality now present Supraventricular rhythm no longer present Left ventricular hypertrophy no longer present ST (T wave) deviation no longer present Electronically Signed On 11-12-2021 16:31:07 CDT by Tony Colindres M.D. [id number]
--- NOTE | 2021-11-12 01:48 | XRR_ITS ---
PROCEDURE INFORMATION: Exam: XR Chest Exam date and time: 11/12/2021 3:16 AM Age: 81 years old Clinical indication: Other: Syncope; Prior surgery; Surgery type: Coronary stent; Patient HX: Witnessed syncopal episode at home. Patient slid to the ground from standing. TECHNIQUE: Imaging protocol: Radiologic exam of the chest. Views: 1 view. COMPARISON: CT chest [facility] [id number] 07/29/2021 4:21 PM FINDINGS: Lungs: Unremarkable. No consolidation. Pleural spaces: Unremarkable. No pleural effusion. No pneumothorax. Heart/Mediastinum: Unremarkable. No cardiomegaly. Bones/joints: No acute findings. XR/XR chest 1V portable [id number] IMPRESSION: No acute findings.
--- NOTE | 2021-11-12 01:49 | CTR_ITS ---
PROCEDURE INFORMATION: Exam: CT Head Without Contrast Exam date and time: 11/12/2021 3:07 AM Age: 81 years old Clinical indication: Syncope and collapse; Patient HX: Witnessed syncopal episode at home. Patient slid to the ground from standing. TECHNIQUE: Imaging protocol: Computed tomography of the head without contrast. Radiation optimization: All CT scans at this facility use at least one of these dose optimization techniques: automated exposure control; mA and/or kV adjustment per patient size (includes targeted exams where dose is matched to clinical indication); or iterative reconstruction. COMPARISON: No relevant prior studies available. RADIATION DOSE METRICS: Total DLP (mGy-cm): 955.08 FINDINGS: Brain: There is generalized brain parenchymal atrophy related to the patient's age. Mild nonspecific white matter changes are seen, consistent with small vessel disease. There are no intracranial masses, mass effect or midline shift. There is no cerebral edema. There is no subarachnoid hemorrhage. There are no intra-or extra-axial fluid collections, intraventricular or intraparenchymal hemorrhage. Intracranial atherosclerotic vascular calcifications are seen. No definite areas of low attenuation or min-white matter junction obscuration seen on the noncontrast CT to suggest definite subacute stroke - although the white matter disease limits assessment. Cerebral ventricles: The lateral, third and fourth ventricles appear unremarkable. The suprasellar and basilar cisterns appear unremarkable. Paranasal sinuses: The visualized sinuses are unremarkable. Mastoid air cells: The visualized mastoids are unremarkable. Orbital cavities: The visualized orbits are unremarkable. Bones/joints: No definite acute osseous or skull abnormalities seen. Soft tissues: Unremarkable. Notes: If there is further clinical concern for intracranial pathology, MRI of the brain may be performed for further assessment. CT/CT head wo con* [id number] IMPRESSION: No noncontrast CT evidence of posttraumatic intracranial abnormality.
--- NOTE | 2021-11-12 01:53 | CTR_ITS ---
PROCEDURE INFORMATION: Exam: CT Cervical Spine Without Contrast Exam date and time: 11/12/2021 3:11 AM Age: 81 years old Clinical indication: Other: Syncope; Patient HX: Witnessed syncopal episode at home. Patient slid to the ground from standing. TECHNIQUE: Imaging protocol: Computed tomography of the cervical spine without contrast. Radiation optimization: All CT scans at this facility use at least one of these dose optimization techniques: automated exposure control; mA and/or kV adjustment per patient size (includes targeted exams where dose is matched to clinical indication); or iterative reconstruction. COMPARISON: CT head wo con* [id number] 11/12/2021 3:07 AM RADIATION DOSE METRICS: Total DLP (mGy-cm): 282.97 FINDINGS: Vertebrae: There is normal alignment. Tiny posterior C4-C5 and small posterior C5-C6 degenerative osteophytes are seen. Medium-sized anterior degenerative osteophytes are seen at seen C4-C5 and C5-C6. There are no fractures or subluxations. The spinous processes are normal. The facet joint, spinolaminar and spinous process alignments are normal. The atlantodental alignment and craniocervical junction region appear unremarkable. Moderate atlantodental degenerative changes are seen. Soft tissues: Prevertebral soft tissues are unremarkable. The paraspinal soft tissues appear unremarkable. Lungs: Lung apices are normal. Discs/Spinal canal/Neural foramina: Moderate to severe C5-C6 disc space narrowing is seen. C2-C3: The disc is unremarkable. Mild bilateral facet arthropathy. No central spinal stenosis. No neuroforaminal narrowing. C3-C4: The disc is unremarkable. Mild bilateral facet arthropathy. No central spinal stenosis. No neuroforaminal narrowing. C4-C5: There is mild diffuse disc bulge with small central disc protrusion. Moderate bilateral facet arthropathy is seen with mild asymmetric left uncovertebral joint hypertrophy. No central spinal stenosis. Mild left foraminal stenosis. C5-C6: There is moderate diffuse disc bulge with small to medium-sized left paracentral disc osteophyte complex. Associated mild bilateral facet arthropathy seen with moderate uncovertebral joint hypertrophy. There appears to be [id number] central spinal stenosis with moderate to severe right and mild left foraminal stenosis. C6-C7: There is mild diffuse disc bulge with small central disc osteophyte complex. Associated [id number]-[id number] bilateral facet arthropathy, left more than right. Minimal central spinal stenosis with mild left foraminal stenosis. C7-T1: The disc is unremarkable. Moderate bilateral facet arthropathy with asymmetric mild left uncovertebral joint hypertrophy. No central spinal stenosis. [id number] left foraminal stenosis. Notes: MRI or CT myelogram may be performed for further evaluation, if there is clinical concern. CT/CT cervical spin wo con* [id number] IMPRESSION: No fractures of the cervical spine. Degenerative changes of the cervical spine, most prominent at the C5-C6 level, as noted above.
[2021-11-12 01:56] VITALS: BP 169/85; PULSE 72; RESP 16; O2SAT 100
[2021-11-12] MEDS: sodium chloride 0.9% 1,000 ML 999 ML IV (02:00)
[2021-11-12 02:03] LABS: Basophils % 0.1 %; Eosinophils # 0.1 10^3/uL (0.0-0.8); Eosinophils % 0.7 %; Hematocrit 39.6 % (42.0-52.0); Hemoglobin 13.9 g/dL (11.7-16.6); Lymphocytes % 10.8 %; Mean Corpuscular HGB Conc 35.1 g/dL (30.0-36.0); Mean Corpuscular Hemoglobin 31.4 pg (28.0-34.0); Mean Corpuscular Volume 89.6 fl (80-94); Mean Platelet Volume 9.9 fL (7.4-10.4); Monocytes # 0.4 10^3/uL (0.2-0.9); Monocytes % 4.7 %; Neutrophils # 7.58 10^3/uL (1.8-7.7); Neutrophils % 83.4 %; Nucleated Red Blood Cells % 0 %; Platelet Count 172 10^3/cmm (130-400); Red Blood Count 4.42 10^6/uL (4.1-5.3); Red Cell Distribution Width 12.2 % (12.1-15.1); White Blood Count 9.1 10^3/uL (4.0-10.0)
[2021-11-12] MEDS: famotidine 20 mg/2 mL INJ 40 MG IVP (02:11)
[2021-11-12 02:23] LABS: Troponin(5th) Baseline 18 ng/L (0-15)
[2021-11-12 02:30] LABS: Procalcitonin 0.05 ng/mL (0-0.5); Thyroid Stimulating Hormone 3.09 uIU/mL (0.27-4.20)
[2021-11-12 02:41] LABS: Alanine Aminotransferase 12 U/L (0-41); Alkaline Phosphatase 66 IU/L (40-130); Anion Gap 16.1 (5-19); Aspartate Amino Transferase 17 U/L (0-40); Blood Urea Nitrogen 23 mg/dL (8-23); Calcium 9.1 mg/dL (8.5-10.5); Carbon Dioxide 24 mmol/L (22-29); Chloride 99 mmol/L (98-107); Glucose 186 mg/dL (65-115); Osmolality Calculated 289 mOsm/kg (285-295); Potassium 4.1 mmol/L (3.5-5.1); Sodium 135 mmol/L (136-145); Total Bilirubin 0.5 mg/dL (0.15-1.2)
--- NOTE | 2021-11-12 03:48 | ECG_ITS ---
[facility] Test Date: 2021-11-12 Pat Name: Shamar Thapa Department: Room: Gender: Male Time Study Engineer: : 1940 Requested By: Thomas Atwood Order Number: [id number] Hollis MD: Tony Colindres M.D. Measurements Intervals [place] Rate: 82 P: 56 SD: 219 QRS: 47 QRSD: 91 T: 54 QT: 357 QTc: 418 Interpretive Statements SINUS RHYTHM WITH FIRST DEGREE AV BLOCK NONSPECIFIC T-WAVE ABNORMALITY Compared to ECG 11/12/2021 01:45:52 No significant changes Electronically Signed On 11-12-2021 16:35:50 CDT by Tony Colindres M.D. [id number]
[2021-11-12 04:27] VITALS: BP 148/77; PULSE 77; RESP 18; O2SAT 98
[2021-11-12 04:37] LABS: Troponin 5 2HR 19.46 ng/L (0-15)
[2021-11-12 04:41] LABS: Add Urine Culture? No; Add Urine Microscopic? YES; Amorphous Sediment Urine TRACE /hpf; Bacteria Urine TRACE /hpf; Bilirubin Urine Neg (Negative); Blood Urine Neg (Negative); Glucose Urine UA 2+ (Normal); Ketones Urine 1+ (Negative); Leukocyte Esterase Urine Negative (Negative); Mucus Urine 2+ /hpf; Nitrate Urine Negative (Negative); Protein Urine Trace (Negative); RBC Urine 0-4 /hpf (0-2); Squamous Epithelial Cell Urine 0-4 /hpf (0-5); Urine Appearance Clear (CLEAR); Urine Color Yellow (Yellow); Urobilinogen Urine Norm (Negative); WBC Urine 0-4 /hpf (0-5); pH Urine 5 (5-7)
[2021-11-12 04:42] LABS: Troponin 5 2HR Delta 1.46 ABS# (0-10)
[2021-11-12 04:52] VITALS: BP 132/78; BP 140/74; BP 141/72; PULSE 88; PULSE 98
[2021-11-12 05:59] LABS: Arterial Blood Gas Hematocrit 42.7 % (42-52); Base Excess ABG 0.3 mmol/L (-2.0-2.0); Blood Gas Allen Test Pos; Blood Gas Sample Site Radial, right; Blood Gas Sample Type Arterial; HCO3 ABG 25.2 mmol/L (22-26); PO2 ABG 67.7 mmHg (80.0-100.0)
[2021-11-12 06:06] LABS: Glucose Point of Care 174 mg/dL (70-110)
[2021-11-12 06:38] VITALS: BP 134/76; O2SAT 93
[2021-11-12] MEDS: HYDROcodone-acetaminophen 10-325 mg Tablet 1 TAB PO (08:02)
[2021-11-12 08:15] VITALS: BP 143/70; PULSE 90; RESP 19; O2SAT 95
[2021-11-12] MEDS: metoprolol tartrate 50 mg Tablet PO (08:22)
[2021-11-12 08:52] LABS: Troponin 5 6HR 40.62 ng/L (0-15)
[2021-11-12 09:21] LABS: Troponin 5 6HR Delta 22.62 ng/L (0-12)
--- NOTE | 2021-11-12 12:13 | PC.NURSE ---
called pt home and spoke to , informed her that doc would like for him to come back due to elevated trop, stated they would try to come back
[2021-11-13 03:48] LABS: Bacillus cereus group Not Detected (NOT DETECT); Bacillus subtillis group Not Detected (NOT DETECT); Corynebacterium Not Detected (NOT DETECT); Cutibacterium acnes (P.acnes) Not Detected (NOT DETECT); Enterococcus Not Detected (NOT DETECT); Enterococcus faecalis Not Detected (NOT DETECT); Enterococcus faecium Not Detected (NOT DETECT); Lactobacillus species Not Detected (NOT DETECT); Listeria Not Detected (NOT DETECT); Listeria monocytogenes Not Detected (NOT DETECT); Micrococcus Not Detected (NOT DETECT); Pan Candida Not Detected (NOT DETECT); Pan Gram-Negative Not Detected (NOT DETECT); Staphylococcus epidermidis Detected (NOT DETECT); Staphylococcus lugdunensis Not Detected (NOT DETECT); Staphylococcus species Detected (NOT DETECT); Streptococcus agalactiae Not Detected (NOT DETECT); Streptococcus anginosus group Not Detected (NOT DETECT); Streptococcus pneumoniae Not Detected (NOT DETECT); Streptococcus pyogenes Not Detected (NOT DETECT); Streptococcus species Not Detected (NOT DETECT); mecA Detected (NOT DETECT); mecC Not Detected (NOT DETECT)
== END 2021-11-12 08:39 | disposition home or self-care (01) ==
PROVIDERS: Emergency Provider Emergency Medicine; PCP Nurse Practitioner Family
DX: R55 Syncope and collapse (principal); I95.9 Hypotension, unspecified; T78.40XA Allergy, unspecified, initial encounter; E86.0 Dehydration; Z79.82 Long term (current) use of aspirin; J44.9 Chronic obstructive pulmonary disease, unspecified; I10 Essential (primary) hypertension
CPT/HCPCS: 36415; 36416; 36600; 70450; 71045; 72125; 80053; 81001; 82803; 82962; 84145; 84443; 84484; 85025; 86140; 87040; 87150; 87205; 93005; 93306; 99285; J2930; J3490; J7030

== ENCOUNTER 2021-11-12 15:11 | Observation (INO) | payer MEDICARE, BC, SELFPAY ==
[2021-11-12] VITALS (9 sets, daily range): BP systolic 115–149; BP diastolic 67–82; PULSE 70–81; RESP 12–19; TEMP 36.6; O2SAT 93–97; BMI 21.6
--- NOTE | 2021-11-12 16:50 | ECG_ITS ---
[facility] Test Date: 2021-11-12 Pat Name: Shamar Thapa Department: Room: Gender: Male Learning Support Specialist: : 1940 Requested By: Nato Fan Order Number: [id number] Hollis MD: Tony Colindres M.D. Measurements Intervals [place] Rate: 70 P: 47 AL: 229 QRS: 16 QRSD: 95 T: 36 QT: 371 QTc: 402 Interpretive Statements SINUS RHYTHM WITH FIRST DEGREE AV BLOCK Compared to ECG 11/12/2021 05:55:33 T-wave abnormality no longer present Electronically Signed On 11-12-2021 17:34:36 CDT by Tony Colindres M.D. [id number]
--- NOTE | 2021-11-12 16:50 | XRR_ITS ---
PROCEDURE INFORMATION: Exam: XR Chest Exam date and time: 11/12/2021 5:28 PM Age: 81 years old Clinical indication: Cough; Additional info: Dyspnea/cough TECHNIQUE: Imaging protocol: Radiologic exam of the chest. Views: 1 view. COMPARISON: CR (CHEST, ) 11/12/2021 3:16 AM FINDINGS: Lungs: Unremarkable. No consolidation. Pleural spaces: Unremarkable. No pleural effusion. No pneumothorax. Heart/Mediastinum: Unremarkable. No cardiomegaly. Bones/joints: Unremarkable. XR/XR chest 1V portable [id number] IMPRESSION: No acute findings.
--- NOTE | 2021-11-12 17:01 | W.ED.RECABL ---
HPI - Recheck/Abnormal Lab/Rx General: Chief Complaint: Recheck/Abnormal Lab/Rx Stated Complaint: abnormal test Time Seen by Provider: 11/12/21 16:48 Source: patient Mode of arrival: ambulatory History of Present Illness: 81-year-old male presents to the emergency room after being called for a positive lab. He was here this morning after presumed allergic reaction his second troponin and first troponin were done and were negative he was waiting for a ride had been discharged by the physician had seen him in the 6-hour troponin was drawn while he was waiting a care back with a positive delta of +22 patient was asked to return he returned back late this afternoon. He is very hard of hearing he denies any chest pain. He states otherwise he has been feeling fine he does have a known history of coronary artery disease however he has had multiple stents placed in the past he thinks the last time he had an evaluation of his heart was about 3 to 4 years ago. Stents he states were placed at [facility]. complaint: abnormal lab Initial visit (ago): hour(s) Returns today for: called because of abnormal lab/test Description of abnormal result: +22 positive delta troponin on a 6-hour test Context: called for abnormal lab result Associated symptoms: none Review of Systems Const: Denies: fever(s), chills, body aches, change in appetite, fatigue or malaise ENMT: Denies: throat pain, ear or mastoid pain, nasal discharge or nasal congestion Card: Denies: chest pain, edema, dyspnea on exertion or orthopnea Resp: Denies: dyspnea, productive cough or non-productive cough GI: Denies: abdominal pain, nausea, vomiting, hematemesis, coffee ground emesis, diarrhea, constipation, bloating, hematochezia or melena : Denies: flank pain, dysuria, urinary frequency or urinary urgency Skin/Breast: Denies: rash or pruritus PFSH ED PFSH: Medical History Anxiety Arthritis COPD (chronic obstructive pulmonary disease) Dehydration, mild Family history of Alzheimer's disease Hearing loss Hypertension Memory deficit Seborrheic keratosis Syncope Tinnitus Surgical History History of coronary artery stent placement Family History Other CAD (coronary artery disease) Hyperlipidemia Hypertension Memory deficit Denies family history of Diabetes Clotting disorder Dementia Psychiatric illness Chronic kidney disease (CKD) Suicide Anesthesia complication Bleeding disorder Family history of premature coronary artery disease Lung disease Cancer Stroke Social History Smoking and tobacco status: never smoked Second hand smoke exposure: No Smoking risk assessment/counseling performed?: Yes Alcohol intake: never Desire information about alcohol rehabilitation?: No Counseling given: No Desire information about substance/drug rehabilitation?: No Counseling given: No Lives independently: Yes Household members: spouse Marital status: service: Yes Current occupational status: retired and disabled Pets and animals: No History of recent travel: No Current gender identity: Male Physical Exam Const: GENERAL APPEARANCE: cooperative and comfortable ORIENTATION/CONSCIOUSNESS: Yes awake, Yes oriented to person, Yes oriented to place and Yes oriented to time HENMT: COMMON NORMALS: normocephalic and atraumatic HEAD & SCALP: normocephalic and atraumatic Resp: COMMON NORMALS: normal respiratory effort, No retractions, No use of accessory muscles and clear to auscultation bilaterally AUSCULTATION: clear to auscultation bilaterally Cardio: COMMON NORMALS: regular rate, regular rhythm and No murmurs present (Cardio) RATE: regular rate RHYTHM: regular rhythm GI: COMMON NORMALS: Soft to palpation and No hepatosplenomegaly present AUSCULTATION: Yes normoactive bowel sounds PALPATION: Yes Soft to palpation, No Tenderness to palpation present (GI), No Guarding due to palpation present (GI) and Yes No hepatosplenomegaly present Extremity: COMMON NORMALS: normal to inspection, capillary refill normal, no clubbing, cyanosis or edema, no calf tenderness and no pedal edema Neuro: SENSORIUM/ORIENTATION: Yes oriented to person, Yes oriented to place and Yes oriented to time Skin: COMMON NORMALS: no rashes or lesions noted GENERAL SKIN EXAM: no rashes or lesions noted Course Vital Signs: Vital signs: Vital Signs Temperature 98 F 11/12/21 20:41 Pulse Rate 65 11/13/21 15:21 Respiratory Rate 16 11/13/21 08:00 Blood Pressure 158/84 11/13/21 10:48 Pulse Oximetry 94 11/13/21 08:00 Oxygen Delivery Me thod 11/13/21 08:00 MDM - Recheck/Abnormal Lab/Rx Medical Decision Making Troponins positive. Patient still has little chest discomfort. Will admit his troponin repeated when he first got it has gone up a little further. Discussed with hospitalist orders written Medical Records I reviewed the patient's medical records. Lab Data I reviewed the patient's lab results. : 11/13/21 04:16 11/13/21 04:16 Radiology Impressions Chest X-Ray 11/12/21 16:50 IMPRESSION: No acute findings. Laboratory Results WBC 10.7 10^3/uL (4.0-10.0) H 11/12/21 17:00 RBC 3.72 10^6/uL (4.1-5.3) L 11/12/21 17:00 Hgb 11.8 g/dL (11.7-16.6) 11/12/21 17:00 Hct 34.3 % (42.0-52.0) L 11/12/21 17:00 MCV 92.2 fl (80-94) 11/12/21 17:00 MCH 31.7 pg (28.0-34.0) 11/12/21 17:00 MCHC 34.4 g/dL (30.0-36.0) 11/12/21 17:00 RDW 13.9 % (12.1-15.1) 11/12/21 17:00 Plt Count 159 10^3/cmm (130-400) 11/12/21 17:00 MPV 10.2 fL (7.4-10.4) 11/12/21 17:00 Neut % (Auto) 85.1 % 11/12/21 17:00 Lymph % (Auto) 9.0 % 11/12/21 17:00 [place] % (Auto) 5.1 % 11/12/21 17:00 Eos % (Auto) 0.1 % 11/12/21 17:00 Baso % (Auto) 0.2 % 11/12/21 17:00 Neut # (Auto) 9.07 10^3/uL (1.8-7.7) H 11/12/21 17:00 Lymph # (Auto) 1.0 10^3/uL (0.8-4.8) 11/12/21 17:00 [place] # (Auto) 0.5 10^3/uL (0.2-0.9) 11/12/21 17:00 Eos # (Auto) 0.0 10^3/uL (0.0-0.8) 11/12/21 17:00 Baso # (Auto) 0.0 10^3/uL (0.0-0.1) 11/12/21 17:00 Nucleated RBC % (auto) 0 % 11/12/21 17:00 Nucleated RBCs # 0.0 /100WBC 11/12/21 17:00 Sodium Cancelled 11/12/21 17:00 Potassium Cancelled 11/12/21 17:00 Chloride Cancelled 11/12/21 17:00 Carbon Dioxide Cancelled 11/12/21 17:00 Anion Gap Cancelled 11/12/21 17:00 BUN Cancelled 11/12/21 17:00 Creatinine Cancelled 11/12/21 17:00 GFR Calculation Cancelled 11/12/21 17:00 Glucose Cancelled 11/12/21 17:00 Calculated Osmolality Cancelled 11/12/21 17:00 Calcium Cancelled 11/12/21 17:00 Total Bilirubin Cancelled 11/12/21 17:00 AST Cancelled 11/12/21 17:00 ALT Cancelled 11/12/21 17:00 Alkaline Phosphatase Cancelled 11/12/21 17:00 Troponin T Baseline 63 ng/L (0-15) H 11/12/21 17:00 Total Protein Cancelled 11/12/21 17:00 Albumin Cancelled 11/12/21 17:00 Globulin Cancelled 11/12/21 17:00 Discharge Plan Discharge Patient Disposition: Admitted As Inpatient Admit Provider: Juan Francisco Bowman Clinical Impression: Elevated troponin, Allergic reaction, COPD (chronic obstructive pulmonary disease) Condition: Stable Discharge Diet: Cardiac Discharge Activity: Increase activity as tolerated Coding Level of Care Code ED Superintendent [employer] for Chg Fwd Exam Detailed
[2021-11-12 17:19] LABS: Basophils % 0.2 %; Eosinophils % 0.1 %; Hematocrit 34.3 % (42.0-52.0); Hemoglobin 11.8 g/dL (11.7-16.6); Mean Corpuscular HGB Conc 34.4 g/dL (30.0-36.0); Mean Corpuscular Hemoglobin 31.7 pg (28.0-34.0); Mean Corpuscular Volume 92.2 fl (80-94); Mean Platelet Volume 10.2 fL (7.4-10.4); Monocytes # 0.5 10^3/uL (0.2-0.9); Monocytes % 5.1 %; Neutrophils # 9.07 10^3/uL (1.8-7.7); Neutrophils % 85.1 %; Nucleated Red Blood Cells % 0 %; Platelet Count 159 10^3/cmm (130-400); Red Blood Count 3.72 10^6/uL (4.1-5.3); Red Cell Distribution Width 13.9 % (12.1-15.1); White Blood Count 10.7 10^3/uL (4.0-10.0)
[2021-11-12 17:55] LABS: Troponin(5th) Baseline 63 ng/L (0-15)
[2021-11-12] MEDS: enoxaparin 100 mg/mL Syringe 90 MG SUBCUT (18:18)
[2021-11-12] MEDS: nitroglycerin 1 gm/inch oint Pkt 0.5 INCH TOPICAL (18:18)
--- NOTE | 2021-11-12 18:42 | P.HP_ITS ---
Providers/Chief Complaint Primary Care Provider: Shoshana Stroud NP Chief Complaint: abnormal test History of Present Illness Shamar Thapa is a 81 year old male who was seen in the ER today for his syncopal event. In the morning his diagnostic work-up was unremarkable first and second troponin were not high he was discharged from the ER. However his 6- hour troponin came back with positive delta of 22 that brought hospital back to the patient. Patient has not experienced any chest pain however he does have significant history of coronary artery disease status post stents placed in the past, As per the patient tried a new ice cream and then developed skin rash which was very itchy he took Benadryl, after an hour had an urge to go to the bathroom for his bowel movement, at that time he developed generalized weakness fatigue and presyncopal symptoms. On EMS arrival he was hypotensive pale and confused. His symptoms improved with IV fluids. Diagnostics in the ER revealed normal CBC, BMP, delta troponin reviewed, EKG showing sinus rhythm with first-degree AV block When I evaluated the patient patient stated that he did not experience any syncopal event he just tripped over a basket which was present in the bathroom, he is stating that his would not believe him and asked him to go to the ER He consider himself fairly active Patient stating that he is able to do push-ups and walk Is not complaining of any active chest pain or shortness of breath No recent syncopal event Review of Systems Const: Denies: fever(s) Eyes: Denies: change in vision ENMT: Denies: throat pain Card: Reports: syncope; Denies: chest pain Resp: Denies: dyspnea GI: Denies: abdominal pain : Denies: flank pain Musc: Denies: neck pain Skin/Breast: Denies: rash Neuro: Denies: headache(s) Psych: Denies: anxiety Endo: Denies: polyuria Pancho/Lymph: Denies: easy bruising All/Imm: Denies: urticaria Medications/Allergies Home Medications Medication Instructions Recorded Confirmed Last Taken Type aspirin 81 mg chewable tablet 81 mg PO DAILY 09/11/20 11/12/21 11/12/21 History polyethylene glycol 3350 17 17 g PO DAILY PRN 09/17/20 11/12/21 Unknown History gram/dose oral powder hydrocodone 10 mg-acetaminophen 1 - 2 tab PO Q6H PRN 06/02/21 11/12/21 11/12/21 History 325 mg tablet magnesium hydroxide 400 mg/5 mL 15 ml PO DAILY PRN 06/02/21 11/12/21 06/02/21 History oral suspension (Milk of Magnesia) 0800 nitroglycerin 0.4 mg sublingual 0.4 mg SUBLINGUAL Q5M PRN 06/02/21 11/12/21 Unknown History tablet budesonide 0.5 mg/2 mL suspension 0.5 mg (2 mL) INHALATION BID #60 ml 08/13/21 11/12/21 11/12/21 Rx for nebulization fluticasone fur. 100 mcg-umeclid 1 inh INHALATION DAILY #60 ea 08/13/21 11/12/21 11/12/21 Rx 62.5 mcg-vilant 25 mcg inhalat.powder (Trelegy Ellipta) alprazolam 1 mg tablet 0.5 mg PO QID PRN 30 Days #120 tab 10/17/21 11/12/21 Unknown Rx cholecalciferol (vitamin D3) 50 50 mcg PO DAILY 90 Days #90 cap 10/17/21 11/12/21 11/12/21 Rx mcg (2,000 unit) capsule metoprolol tartrate 25 mg tablet See Rx Instructions .ROUTE 10/17/21 11/12/21 11/12/21 Rx .COMPLEX #270 tab vitamins no.154-ferrous 2 tab PO DAILY 90 Days #180 tab 10/17/21 11/12/21 11/12/21 Rx fumarate 27 mg-folic acid 1 mg tablet epinephrine 0.3 mg/0.3 mL 0.3 mg (0.3 mL) IM Q15M PRN #2 ea 11/12/21 11/12/21 Unknown Rx injection, auto-injector (EpiPen 2-Denilson) Allergies Allergy/AdvReac Type Severity Reaction Status Date / Time ciprofloxacin [From Cipro] Allergy Mild ALGY-Rash Verified 10/17/21 13:50 sulfamethoxazole Allergy Mild ALGY-Rash Verified 10/17/21 13:50 [From Bactrim] trimethoprim [From Bactrim] Allergy Mild ALGY-Rash Verified 10/17/21 13:50 PFSH Acute PFSH: Medical History COPD (chronic obstructive pulmonary disease) Hearing loss Hypertension Tinnitus Surgical History History of coronary artery stent placement Family History Other CAD (coronary artery disease) Hyperlipidemia Hypertension Memory deficit Denies family history of Diabetes Clotting disorder Dementia Psychiatric illness Chronic kidney disease (CKD) Suicide Anesthesia complication Bleeding disorder Family history of premature coronary artery disease Lung disease Cancer Stroke Social History Smoking and tobacco status: never smoked Second hand smoke exposure: No Smoking risk assessment/counseling performed?: Yes Alcohol intake: never Desire information about alcohol rehabilitation?: No Counseling given: No Desire information about substance/drug rehabilitation?: No Counseling given: No Lives independently: Yes Household members: spouse Marital status: service: Yes Current occupational status: retired and disabled Pets and animals: No History of recent travel: No Current gender identity: Male Vitals/I&O/Wt Last Vital Signs Temp 98 F 11/12/21 15:43 Pulse 75 11/12/21 18:30 Resp 18 11/12/21 18:30 BP 128/82 11/12/21 18:30 Pulse Ox 96 11/12/21 18:30 Weight last 48 hrs Weight 84.912 kg Physical Exam Narrative: Very hard of hearing Pleasant and cooperative Sinus rhythm first-degree AV block Hemodynamically stable Currently saturating well on room air Nonfocal neuro exam Abdomen soft No audible stridor or wheezing No signs of cellulitis Data : 11/13/21 04:16 11/13/21 04:16 A&P Assessment and plan (1) Syncope: Status: Acute (2) Dehydration, mild: Status: Acute (3) Seborrheic keratosis: Status: Acute (4) Anxiety: Status: Acute (5) Family history of Alzheimer's disease: Status: Acute (6) Memory deficit: Status: Acute (7) Arthritis: Status: Acute Plan Syncope Positive delta troponin No active chest pain Patient has been given therapeutic dose of Lovenox in the ER I would like to get carotid Doppler, echo, TSH, Lexiscan stress test tomorrow morning He is chest pain-free Hemodynamically stable Keep him n.p.o. after midnight He does have established coronary disease, will request records from [facility] History of COPD without acute exacerbation Continue DuoNeb Alzheimer's/memory deficit no acute exacerbation Mild signs of dehydration gentle fluid hydration Patient will be n.p.o. after midnight Full code He can have cardiac diet until midnight Attestations Medical Necessity Statement*: Anticipating discharge within 42 hours for work- up of syncope Time Spent in Patient Care: 40 Coding Level of Care Code Acute Electrical Line Mechanic for Chg Fwd Diagnoses Syncope R55 Dehydration, mild E86.0 Seborrheic keratosis L82.1 Anxiety F41.9 Family history of Alzheimer's disease Z82.0 Memory deficit R41.3 Arthritis M19.90
--- NOTE | 2021-11-12 18:50 | ECG_ITS ---
[facility] [place] Test Date: 2021-11-12 Pat Name: Shamar Thapa Department: Room: ICU03 Gender: Male Bright Cutter: : 1940 Requested By: Nato Fan Order Number: [id number] Hollis MD: Tony Colindres M.D. Measurements Intervals [place] Rate: 72 P: 45 IA: 233 QRS: 14 QRSD: 91 T: 58 QT: 372 QTc: 408 Interpretive Statements SINUS RHYTHM WITH FIRST DEGREE AV BLOCK NONSPECIFIC ST & T-WAVE ABNORMALITY Compared to ECG 11/12/2021 17:10:24 T-wave abnormality now present Electronically Signed On 11-12-2021 23:24:51 CDT by Tony Colindres M.D. [id number]
[2021-11-12 19:47] LABS: Alanine Aminotransferase 15 U/L (0-41); Albumin Level 4.2 g/dL (3.5-5.2); Alkaline Phosphatase 59 IU/L (40-130); Aspartate Amino Transferase 26 U/L (0-40); Blood Urea Nitrogen 17 mg/dL (8-23); Calcium 8.7 mg/dL (8.5-10.5); Carbon Dioxide 25 mmol/L (22-29); Chloride 101 mmol/L (98-107); Globulin 2.5 g/dL (1.3-4.6); Glucose 152 mg/dL (65-115); Osmolality Calculated 287 mOsm/kg (285-295); Sodium 136 mmol/L (136-145); Total Bilirubin 1.1 mg/dL (0.15-1.2); Total Protein 6.7 g/dL (6.6-8.7)
[2021-11-12 19:53] LABS: Troponin 5 2HR 97.83 ng/L (0-15)
[2021-11-12 20:03] LABS: Troponin 5 2HR Delta 34.83 ABS# (0-10)
--- NOTE | 2021-11-12 21:04 | USCV_ITS ---
Elier Shamar Age: 81 Gender: M : 1940 Exam Date: 11/12/2021 21:43 Ordering Phys: Juan Francisco Bowman MD Technologist: ROBYN [place] [facility] [place]: syncope Risk Factors: syncope Previous Vascular Surgery: None Right Brachial BP: / Left Brachial BP: / Right Left Velocity (cm/s) Spectral Plaque Velocity (cm/s) Spectral Plaque Syst/Diast Broadening Syst/Diast Broadening 78.30/ 14.30 None None Prox CCA 84.90 / 13.20 None None 65.10/ 19.80 None None Mid CCA 77.80 / 17.10 None None 52.60/ 11.80 None None Distal CCA 74.30 / 16.20 None None 61.80/ 15.10 Min Hetro Prox ICA 89.70 / 24.80 Min Hetro 69.00/ 19.70 Min Hetro Mid ICA 77.80 / 23.10 Min Hetro 61.10/ 15.80 Min Hetro Distal ICA 70.10 / 23.90 Min Hetro 67.00 Min None ECA 64.90 Min None 0.88 ICA/CCA 1.06 Antegrade Vertebral Antegrade 42.00/ 12.50 cm/s 41.00/ 11.00 cm/s Tri Subclavian Tri 121.3 95.90 0 FINDINGS Comparison: none available. No significant elevation of systolic or diastolic velocities. Waveforms are normal. Mixture of calcified and noncalcified plaque in the bifurcations. Antegrade vertebral arteries. CONCLUSIONS Bilateral ICA stenosis less than 50%. Mild atherosclerosis at the carotid bifurcations. Dr. Clara William DO (Electronically Signed) Final Date: 13 November 2021 08:11 S
--- NOTE | 2021-11-12 21:04 | USCV_ITS ---
Shamar Thapa Age: 81 Gender: M : 1940 Exam Date: 11/12/2021 22:10 Ordering Phys: Nato Barrett DO Technologist: ROBYN [place] [facility] [place]: syncope BP: 138 / 78 HR: 74 Rhythm: Sinus Technical Quality: Adequate MEASUREMENTS (Male / Female) Normal Values 2D ECHO LV Diastolic Diameter PLAX 4.0 cm 4.2 - 5.9 / 3.9 - 5.3 cm LV Systolic Diameter PLAX 2.6 cm IVS Diastolic Thickness 1.5 cm 0.6 - 1.0 / 0.6 - 0.9 cm IVS Systolic Thickness 1.7 cm LVPW Diastolic Thickness 1.3 cm 0.6 - 1.0 / 0.6 - 0.9 cm LVPW Systolic Thickness 1.8 cm LVOT Diameter 2.4 cm LV Ejection Fraction 2D Teich 62.5 % LV Ejection Fraction MOD 2C 58.1 % LV Ejection Fraction 2C AL 60.5 % LA Diameter 4.0 cm LA Width 3.6 cm LA Height 5.4 cm RA Width 3.6 cm RA Height 4.1 cm Aorta at Sinotubular Diameter 3.6 cm IVC Diameter 1.6 cm M-MODE Aortic Annulus Diameter 3.2 cm LA Ao Ratio MM 1.3 MV E Point Septal Separation 0.4 cm DOPPLER AV Peak Velocity 171.0 cm/s LVOT Peak Velocity 91.0 cm/s AV Area Cont Eq vti 2.5 cm squared AV Area Cont Eq pk 2.4 cm squared MV Peak Velocity 110.0 cm/s MV Area PHT 2.4 cm squared Mitral E to A Ratio 0.8 MV E' Velocity 46.5 cm/s Mitral E to MV E' Ratio 13.2 Mitral E to LV E' Lateral Ratio 17.0 Mitral E to LV E' Septal Ratio 10.8 TR Peak Velocity 239.5 cm/s TR Peak Gradient 22.9 mmHg TV Peak E Velocity 37.0 cm/s Right Atrial Pressure 5.0 mmHg Pulmonary Artery Systolic Pressu 27.9 mmHg PV Peak Velocity 108.0 cm/s RV Acceleration Time 0.1 s RV Ejection Time 0.4 s RV AcT/ET 0.4 FINDINGS Left Ventricle Normal left ventricular size and systolic function, EF 60 %. No regional wall motion abnormalities. Right Ventricle The right ventricle is normal in size and function. Right Atrium The right atrium is normal in size. Left Atrium The left atrium is normal in size. Mitral Valve Thickened mitral valve. Moderate mitral annular calcification. Aortic Valve Thickened aortic valve. Tricuspid Valve Trace tricuspid valve regurgitation. Pulmonic Valve Trace pulmonary valve regurgitation. Pericardium Normal pericardium without effusion. Aorta Normal ascending aorta dimension. IVC Normal inferior vena cava. CONCLUSIONS Normal left ventricular size and systolic function, EF 60 %. No regional wall motion abnormalities. Thickened mitral valve. Moderate mitral annular calcification. Thickened aortic valve. Trace tricuspid valve regurgitation. Trace pulmonary valve regurgitation. There is no pericardial effusion. There are no intracardiac masses. No similar previous studies are available for comparison Dr Barber Sr MD FACC (Electronically Signed) Final Date: 13 November 2021 14:15 S
[2021-11-12 21:14] LABS: Vitamin B12 290 pg/mL (232-1245)
[2021-11-12 21:15] LABS: Thyroid Stimulating Hormone 0.53 uIU/mL (0.27-4.20)
[2021-11-12] MEDS: metoprolol tartrate 25 mg Tablet PO (21:40)
--- NOTE | 2021-11-12 22:50 | ECG_ITS ---
[facility] Test Date: 2021-11-13 Pat Name: Shamar Thapa Department: Room: ICU03 Gender: Male Orthopaedic Physician Assistant: : 1940 Requested By: Nato Fan Order Number: [id number] Hollis MD: Barber Sr M.D. Measurements Intervals [place] Rate: 69 P: 52 MN: 259 QRS: 1 QRSD: 91 T: 28 QT: 367 QTc: 393 Interpretive Statements SINUS RHYTHM WITH FIRST DEGREE AV BLOCK Compared to ECG 11/12/2021 19:32:03 T-wave abnormality no longer present Electronically Signed On 11-13-2021 21:18:05 CDT by Barber Sr M.D. [id number]
[2021-11-12 23:24] LABS: Troponin 5 6HR 95.37 ng/L (0-15)
[2021-11-12 23:37] LABS: Troponin 5 6HR Delta 32.37 ng/L (0-12)
--- NOTE | 2021-11-13 02:08 | PC.NURSE ---
Blood cultures drawn on patient positive for gram + cocci in clusters. Results are not showing on current account. Patient was previously seen in ER with . Blood culture results are able to be accessed from that account. Physician notified of results and where to locate test results.
[2021-11-13 05:08] LABS: Basophils % 0.1 %; Hematocrit 35.8 % (42.0-52.0); Hemoglobin 11.8 g/dL (11.7-16.6); Lymphocytes # 0.9 10^3/uL (0.8-4.8); Lymphocytes % 10.5 %; Mean Platelet Volume 10.4 fL (7.4-10.4); Monocytes # 0.2 10^3/uL (0.2-0.9); Monocytes % 2.4 %; Neutrophils # 7.12 10^3/uL (1.8-7.7); Neutrophils % 86.8 %; Nucleated Red Blood Cells % 0 %; Platelet Count 151 10^3/cmm (130-400); Red Blood Count 3.81 10^6/uL (4.1-5.3); Red Cell Distribution Width 12.5 % (12.1-15.1); White Blood Count 8.2 10^3/uL (4.0-10.0)
[2021-11-13 05:30] LABS: Anion Gap 12.2 (5-19); Blood Urea Nitrogen 15 mg/dL (8-23); Calcium 8.7 mg/dL (8.5-10.5); Carbon Dioxide 26 mmol/L (22-29); Chloride 106 mmol/L (98-107); Glucose 191 mg/dL (65-115); Osmolality Calculated 296 mOsm/kg (285-295); Potassium 4.2 mmol/L (3.5-5.1); Sodium 140 mmol/L (136-145)
[2021-11-13 05:38] VITALS: PULSE 80
[2021-11-13] MEDS: metoprolol tartrate 50 mg Tablet PO (05:42)
--- NOTE | 2021-11-13 05:46 | NMCV_ITS ---
NM gurpreet perf SPECT r/s* [id number] Shamar Thapa Age: 81 Gender: M : 1940 Exam Date: 11/13/2021 05:46 Ordering Phys: Juan Francisco Bowman MD Technologist: CHRISTINA Weclh Exam Location: [facility] Indications: CHEST PAIN STRESS TEST Please see separate stress test report in [facility] for full findings IMAGE PROTOCOL Rest/Stress 1 Lexiscan Day Radiopharmaceutical Dose (mCi) Administration Site Administered by Rest: Tc-99m 10.7 IV CHRISTINA Smith Sestamibi Stress:Tc-99m 32.6 IV CHRISTINA Smith Sestamibi Rest: 13-Nov-2021 60 Discovery 630 Stress: 13-Nov-2021 30 Discovery 630 0.4mg Lexiscan. Supine position only as patient was unable to lay prone. SPECT RESULTS Technical Quality: Good Raw Data Analysis: Normal Image Corrections: No attenuation or motion correction applied Summed Stress Score: 2 Summed Rest Score: 3 Summed Difference Score: 0 PERFUSION FINDINGS A small area of slightly decreased tracer uptake was noted in the inferolateral region. No significant reversibility was noted in this region. FUNCTIONAL RESULTS (calculated via Gated SPECT) Stress Image LV EF (%): 67 Stress EDV (mL):95 TID: 1.1 Stress ESV (mL):31 FUNCTIONAL FINDINGS: Segmental wall motion analysis revealing no gross wall motion normalities IMPRESSIONS 1. Unremarkable Myocardial perfusion imaging 2. Normal LV ejection fraction of 67%. 3. Segmental wall motion analysis revealing no gross wall motion abnormalities 4. Normal LV volume Low probability for coronary ischemia, based on the above findings Dr Barber Sr MD [facility] (Electronically Signed) Final Date: 13 November 2021 14:18 S
--- NOTE | 2021-11-13 06:00 | ECG_ITS ---
[facility] Test Date: 2021-11-13 Pat Name: Shamar Thapa Department: Room: ICU03 Gender: Male Director Furniture: Katemaria Gonzalez : 1940 Requested By: Juan Francisco Bowman Order Number: [id number] Hollis MD: Barber Sr M.D. Interpretive Statements NAME OF STUDY: LEXISCAN SESTAMIBI STRESS TEST INDICATION: Chest Pain, PROCEDURE: At the baseline, the EKG revealed normal sinus rhythm with diffuse nonspecific ST-T changes. The baseline blood pressure was 155/86 mm Hg with a heart rate of 81 beats/min. Lexiscan was infused over a period of 20 seconds. A total of 0.4 milligrams of Lexiscan was infused. The stress phase was continued for a total of 5 minutes. Heart rate at the end of the stress phase was 90 with a blood pressure 159/86. The EKG at the peak infusion revealed no significant changes. Sestamibi was injected 20 seconds after the Lexiscan infusion. Blood pressure at the end of the recovery phase was 153/83 with a heart rate of 85 per minute. CONCLUSION: 1. No significant EKG changes with the LexiScan infusion 2. No LexiScan induced chest pain or cardiac arrhythmia 3. Normal blood pressure and heart rate response 4. Sestamibi/sestamibi perfusion scan pending; see separate report. Electronically Signed On 11-14-2021 14:02:07 CDT by Barber Sr M.D. [id number]
[2021-11-13 08:00] VITALS: PULSE 74; PULSE 79; RESP 16; O2SAT 94
[2021-11-13] MEDS: aspirin 81 mg Chew Tablet PO (09:54)
[2021-11-13] MEDS: regadenoson 0.4 Mg/5 ml Syringe IVP (10:25)
[2021-11-13 10:48] VITALS: BP 158/84; PULSE 88
--- NOTE | 2021-11-13 11:40 | PM.DCS ---
Discharge Providers Date of Admission: 11/12/21 18:13 Date of Discharge: November 13, 2021 Attending Provider at Admission: Juan Francisco Bowman MD Attending Provider at Discharge: Juan Francisco Bowman MD Primary Care Provider: Shoshana Stroud NP Diagnoses at Discharge Discharge Diagnosis (1) Syncope: Status: Acute (2) Dehydration, mild: Status: Acute (3) Seborrheic keratosis: Status: Acute (4) Anxiety: Status: Acute (5) Family history of Alzheimer's disease: Status: Acute (6) Memory deficit: Status: Acute (7) Arthritis: Status: Acute Reason for Visit Reason for Visit: abnormal test Hospital Course Hospital Course 81-year-old male who was admitted to the hospital after significant delta troponin when he was evaluated in the ER earlier. Patient was discharged home when only secondary troponin was reported. However his 6-hour troponin came back with positive delta that is why he was asked to come back to the hospital. Patient is stating that he never had any syncopal event he just tripped over a basket which was present to the bathroom. He never experienced any chest pain, loss of consciousness, shortness of breath. He consider himself fairly active. Carotid Doppler without significant stenosis. Echo unremarkable, stress test is negative. He will be discharged home. Orthostatics negative, EKG showing sinus rhythm. His degree AV block. Remained hemodynamically stable throughout his hospitalization. For his abnormal PSA I would like to repeat PSA level on when he is going to see Dr. Joy on 11/19. If repeat PSA levels are also high would recommend outpatient follow-up with Dr. Goddard. His vitamin B12 is on the low normal side which can cause peripheral neuropathy and frequent falls. Would like to replenish B12 for now. Throughout his hospitalization he has remained hypertensive. With his hypertensive episode and syncopal event as per his I am reluctant to increase his antihypertensive regimen for now. is adamant that he needs to stay in the hospital for more work-up however with extensive work-up in the hospital there is no indication to stay longer. We are discharging him today with outpatient follow-up with Dr. Joy. He will get vitamin B12 supplementation, event monitor to detect any arrhythmias. Physical Exam Narrative: Euvolemic very pleasant male extremely hard of hearing S1, S2 systolic murmur Abdomen soft Nonfocal neuro exam Saturating well on room air No carotid bruit No skin ulcers Patient is euvolemic Discharge Data Studies Completed and Pending Completed Studies During Hospitalization Category Date Time Status Cardiac Stress Test Request Routine Exams 11/13/21 06:00 Draft XR chest 1V portable [id number] Stat Exams 11/12/21 16:50 Completed CV carotid duplex BI* [id number] Urgent Ultrasound 11/12/21 21:04 Completed Pending at discharge Category Date Time Status Cardiac Stress Test MIBI [Sestamibi Stress Test Request Exams 11/13/21 05:46 Ordered ] Routine NM gurpreet perf SPECT r/s* [id number] Routine Nuc Med 11/13/21 05:46 Ordered US echo complete [CV. echo complete* [id number]] Routine Ultrasound 11/12/21 21:04 Taken Radiology Impressions Chest X-Ray 11/12/21 16:50 IMPRESSION: No acute findings. Laboratory Results WBC 8.2 10^3/uL (4.0-10.0) 11/13/21 04:16 RBC 3.81 10^6/uL (4.1-5.3) L 11/13/21 04:16 Hgb 11.8 g/dL (11.7-16.6) 11/13/21 04:16 Hct 35.8 % (42.0-52.0) L 11/13/21 04:16 MCV 94.0 fl (80-94) 11/13/21 04:16 MCH 31.0 pg (28.0-34.0) 11/13/21 04:16 MCHC 33.0 g/dL (30.0-36.0) 11/13/21 04:16 RDW 12.5 % (12.1-15.1) 11/13/21 04:16 Plt Count 151 10^3/cmm (130-400) 11/13/21 04:16 MPV 10.4 fL (7.4-10.4) 11/13/21 04:16 Neut % (Auto) 86.8 % 11/13/21 04:16 Lymph % (Auto) 10.5 % 11/13/21 04:16 Norton % (Auto) 2.4 % 11/13/21 04:16 Eos % (Auto) 0.0 % 11/13/21 04:16 Baso % (Auto) 0.1 % 11/13/21 04:16 Neut # (Auto) 7.12 10^3/uL (1.8-7.7) 11/13/21 04:16 Lymph # (Auto) 0.9 10^3/uL (0.8-4.8) 11/13/21 04:16 Norton # (Auto) 0.2 10^3/uL (0.2-0.9) 11/13/21 04:16 Eos # (Auto) 0.0 10^3/uL (0.0-0.8) 11/13/21 04:16 Baso # (Auto) 0.0 10^3/uL (0.0-0.1) 11/13/21 04:16 Nucleated RBC % (auto) 0 % 11/13/21 04:16 Nucleated RBCs # 0.0 /100WBC 11/13/21 04:16 Sodium 140 mmol/L (136-145) 11/13/21 04:16 Potassium 4.2 mmol/L (3.5-5.1) 11/13/21 04:16 Chloride 106 mmol/L (98-107) 11/13/21 04:16 Carbon Dioxide 26 mmol/L (22-29) 11/13/21 04:16 Anion Gap 12.2 (5-19) 11/13/21 04:16 BUN 15 mg/dL (8-23) 11/13/21 04:16 Creatinine 0.7 mg/dL (0.7-1.2) 11/13/21 04:16 GFR Calculation Not Reportable 11/13/21 04:16 Glucose 191 mg/dL (65-115) H 11/13/21 04:16 Calculated Osmolality 296 mOsm/kg (285-295) H 11/13/21 04:16 Calcium 8.7 mg/dL (8.5-10.5) 11/13/21 04:16 Total Bilirubin 1.1 mg/dL (0.15-1.2) 11/12/21 18:30 AST 26 U/L (0-40) 11/12/21 18:30 ALT 15 U/L (0-41) 11/12/21 18:30 Alkaline Phosphatase 59 IU/L (40-130) 11/12/21 18:30 Troponin T Baseline 63 ng/L (0-15) H 11/12/21 17:00 Troponin T 120 Minute 97.83 ng/L (0-15) H 11/12/21 18:30 Delta Troponin T 34.83 ABS# (0-10) H* 11/12/21 18:30 Troponin T Hi Sens 6Hr 95.37 ng/L (0-15) H 11/12/21 22:30 Troponin T Hi Sens 6Hr Delta 32.37 ng/L (0-12) H* 11/12/21 22:30 Total Protein 6.7 g/dL (6.6-8.7) 11/12/21 18:30 Albumin 4.2 g/dL (3.5-5.2) 11/12/21 18:30 Globulin 2.5 g/dL (1.3-4.6) 11/12/21 18:30 Prostate Specific Ag 29.170 ng/mL (0-4) H 11/12/21 18:30 Vitamin B12 290 pg/mL (232-1245) 11/12/21 18:30 TSH 0.53 uIU/mL (0.27-4.20) 11/12/21 18:30 Prolactin 7.10 ng/mL (4.0-15.2) 11/12/21 18:30 Vitals Last Vital Signs Temp 98 F 11/12/21 20:41 Pulse 88 11/13/21 10:48 Resp 16 11/13/21 08:00 BP 158/84 11/13/21 10:48 Pulse Ox 94 11/13/21 08:00 Discharge Plan Discharge Patient Disposition: Home Condition: Stable Prescriptions: New cyanocobalamin (vitamin B-12) 1,000 mcg capsule 1,000 mcg PO DAILY Qty: 90 4RF Continued aspirin 81 mg tablet,chewable 81 mg PO DAILY 0RF alprazolam 1 mg tablet 0.5 mg PO QID PRN (Reason: Anxiety) 30 Days Qty: 120 0RF cholecalciferol (vitamin D3) 50 mcg (2,000 unit) capsule 50 mcg PO DAILY 90 Days Qty: 90 1RF metoprolol tartrate 25 mg tablet See Rx Instructions .ROUTE .COMPLEX Qty: 270 1RF Rx Instructions: 50 mg orally in the morning/ 25 mg orally in the evening PNV no.154-iron fumarate-folic 27 mg iron- 1 mg tablet 2 tab PO DAILY 90 Days Qty: 180 1RF Trelegy Ellipta 100-62.5-25 mcg blister with device 1 inh inhalation DAILY Qty: 60 3RF budesonide 0.5 mg/2 mL suspension for nebulization 0.5 mg inhalation BID Qty: 60 3RF polyethylene glycol 3350 17 gram/dose powder 17 g PO DAILY PRN (Reason: Constipation) 0RF magnesium hydroxide [Milk of Magnesia] 400 mg/5 mL Suspension 15 ml PO DAILY PRN (Reason: Constipation) 0RF hydrocodone-acetaminophen 10-325 mg Tablet 1 - 2 tab PO Q6H PRN (Reason: Pain) 0RF nitroglycerin 0.4 mg Tablet, Sublingual 0.4 mg SUBLINGUAL Q5M PRN (Reason: Chest Pain) 0RF Rx Instructions: do not exceed 3 doses per episode epinephrine [EpiPen 2-Denilson] 0.3 mg/0.3 mL auto-injector 0.3 mg IM Q15M PRN (Reason: anaphylaxis) Qty: 2 2RF Rx Instructions: for 3 doses Discharge Orders: Discharge Order (Routine); Ordered 11/13/21 Ordered By: Juan Francisco Bowman Other Ambulatory Orders: MCT/Event Monitor 14 Days (Routine) Timeframe: 2 Weeks Facility: [facility] - Location: Radiology Ordered By: Juan Francisco Bowman Prostate Specific Antigen (Routine) Timeframe: 20211119 Facility: [facility] - Location: Lab - Main Lab Ordered By: Juan Francisco Bowman Referrals: Shoshana Stroud NP [Primary Care Provider] - 2 weeks Discharge Diet: Cardiac Discharge Activity: Increase activity as tolerated Patient Instructions: Opioid Safety Discharge Attestations Time Spent in Discharge Care*: less than 30 min Quality Metrics Clinical Quality Measures [ No reported AMI, CVA or VTE this stay] Coding Level of Care Code Acute Chg FW DC note Diagnoses Syncope R55 Dehydration, mild E86.0 Seborrheic keratosis L82.1 Anxiety F41.9 Family history of Alzheimer's disease Z82.0 Memory deficit R41.3 Arthritis M19.90
[2021-11-13] MEDS: ALPRAZolam 0.5 mg Tablet PO (13:39)
[2021-11-13] MEDS: HYDROcodone-acetaminophen 10-325 mg Tablet 1 TAB PO (13:46)
[2021-11-13 14:00] VITALS: PULSE 65
[2021-11-13 15:21] VITALS: PULSE 65
== END 2021-11-13 15:22 | disposition home or self-care (01) ==
LOC: ER 17:03 → ICU 20:44
PROVIDERS: Admitting Provider Internal Medicine; Emergency Provider Family Medicine; PCP Nurse Practitioner Family; Visit Provider Internal Medicine
DX: R55 Syncope and collapse (principal); E86.0 Dehydration; L82.1 Other seborrheic keratosis; F41.9 Anxiety disorder, unspecified; Z82.0 Family history of epilepsy and other diseases of the nervous system; R41.3 Other amnesia; M19.90 Unspecified osteoarthritis, unspecified site; Z79.82 Long term (current) use of aspirin; I44.0 Atrioventricular block, first degree; J44.9 Chronic obstructive pulmonary disease, unspecified; I10 Essential (primary) hypertension; Z95.5 Presence of coronary angioplasty implant and graft; Z82.49 Family history of ischemic heart disease and other diseases of the circulatory system; I95.9 Hypotension, unspecified; T78.40XA Allergy, unspecified, initial encounter
CPT/HCPCS: 36415; 36416; 36600; 70450; 71045; 72125; 78452; 80048; 80053; 81001; 82607; 82803; 82962; 84145; 84146; 84153; 84443; 84484; 85025; 86140; 87040; 87150; 87205; 93005; 93017; 93306; 93880; 96372; 96374; 99285; A9500; G0378; J1650; J2785; J2920; J2930; J3490; J7030

== ENCOUNTER → 2022-03-30 14:37 | Outpatient (BNVA) | payer MEDICARE, BC, SELFPAY | PROVIDERS: PCP Nurse Practitioner Family; Visit Provider Nurse Practitioner Family | DX: I10 Essential (primary) hypertension (principal); F41.9 Anxiety disorder, unspecified; J44.9 Chronic obstructive pulmonary disease, unspecified; M79.10 Myalgia, unspecified site | CPT/HCPCS: 80053; 80061; 82306 ==

== ENCOUNTER → 2022-10-06 15:57 | Outpatient (BNVA) | payer MEDICARE, BC, SELFPAY | PROVIDERS: PCP Nurse Practitioner Family; Visit Provider Nurse Practitioner Family | DX: I10 Essential (primary) hypertension (principal) | CPT/HCPCS: 80053; 80061 ==

== ENCOUNTER 2022-12-16 00:31 | Emergency (ER) | payer MEDICARE, BC, SELFPAY ==
[2022-12-16 00:33] VITALS: BP 126/75; PULSE 100; RESP 16; TEMP 37.2; O2SAT 93; BMI 27.1
--- NOTE | 2022-12-16 00:38 | W.ED.WEAKNES ---
HPI - Weakness General: Chief complaint: Nausea/Vomiting/Diarrhea Stated complaint: abd pain, diarrhea, weakness Time Seen by Provider: 12/16/22 00:37 History of Present Illness: 82-year-old male patient was brought in by EMS for concerns of generalized weakness and diarrhea. Patient had been constipated and family had given him a dose of milk of magnesia last night. Today patient has been up and down to the bathroom all day and the spouse is having more difficulty trying to help him so she called EMS. Patient appears nontoxic. Patient is alert and responds to questions. Associated symptoms: Reports nausea Review of Systems General: Reports: 10 or more systems reviewed and unremarkable except in HPI and below GI: Reports: nausea and diarrhea PFSH ED PFSH: Medical History Anxiety Arthritis COPD (chronic obstructive pulmonary disease) Dehydration, mild Family history of Alzheimer's disease Hearing loss Hypertension Memory deficit Seborrheic keratosis Syncope Tinnitus Surgical History History of coronary artery stent placement Family History Other CAD (coronary artery disease) Hyperlipidemia Hypertension Memory deficit Denies family history of Diabetes Clotting disorder Dementia Psychiatric illness Chronic kidney disease (CKD) Suicide Anesthesia complication Bleeding disorder Family history of premature coronary artery disease Lung disease Cancer Stroke Social History Smoking and tobacco status: never smoked Second hand smoke exposure: No Smoking risk assessment/counseling performed?: Yes Alcohol intake: never Desire information about alcohol rehabilitation?: No Counseling given: No Substance/Drug Use: never Desire information about substance/drug rehabilitation?: No Counseling given: No Lives independently: Yes Household members: spouse Marital status: service: Yes Current occupational status: retired and disabled Pets and animals: No Do you think of yourself as: Straight/Heterosexual Current gender identity: Male Physical Exam Const: COMMON NORMALS: alert HENMT: COMMON NORMALS: normocephalic HEAD & SCALP: normocephalic Neck/C-Spine: COMMON NORMALS: full ROM Resp: COMMON NORMALS: normal respiratory effort and clear to auscultation bilaterally AUSCULTATION: clear to auscultation bilaterally Cardio: COMMON NORMALS: regular rate and regular rhythm RATE: regular rate RHYTHM: regular rhythm GI: COMMON NORMALS: Soft to palpation PALPATION: Yes Soft to palpation Extremity: COMMON NORMALS: no pedal edema Neuro: SENSORIUM/ORIENTATION: Yes alert Skin: COMMON NORMALS: turgor normal GENERAL SKIN EXAM: turgor normal Course Vital Signs: Vital signs: Vital Signs Temperature 99.0 F 12/16/22 06:26 Pulse Rate 100 12/16/22 06:26 Respiratory Rate 16 12/16/22 06:26 Blood Pressure 126/75 12/16/22 06:26 Pulse Oximetry 93 12/16/22 06:26 MDM - Weakness Medical Decision Making Patient was brought in by EMS for concerns of diarrhea after being given milk of magnesia. On examination patient's abdomen is soft with some mild tenderness to palpation. Bowel sounds were hyperactive. Skin was warm and dry. Vital signs were normal. Differential diagnosis includes dehydration, bowel obstruction, constipation, adverse effect of medicine, gastroenteritis, diverticulitis. Laboratory values noted a mild leukocytosis at 13,000, unremarkable CMP, CT of the abdomen pelvis noted no acute findings. My review of the CT noted a large amount of stool in the rectum. Recommended enemas to help with bowel evacuation. Patient was given 1 soapsuds enema of approximately 1 L with results of liquid stool, and 1 fleets enema. Patient tolerated well. Patient was DC'd to home with recommendations for further treatment for constipation and follow-up with primary care. Lab Data 12/16/22 00:47 12/16/22 00:47 Radiology Impressions Abdomen/Pelvis CT 12/16/22 00:39 IMPRESSION: No acute findings in the abdomen and pelvis. Laboratory Results WBC 13.21 10^3/uL (3.29-11.43) H 12/16/22 00:47 RBC 4.27 10^6/uL (3.85-5.65) 12/16/22 00:47 Hgb 13.40 g/dL (11.27-16.99) 12/16/22 00:47 Hct 38.5 % (37-53) 12/16/22 00:47 MCV 90.2 fl (82-101) 12/16/22 00:47 MCH 31.4 pg (27-33) 12/16/22 00:47 MCHC 34.8 g/dL (30-55) 12/16/22 00:47 RDW 12.2 % (12.1-15.1) 12/16/22 00:47 Plt Count 188 10^3/cmm (157-399) 12/16/22 00:47 MPV 9.8 fL (7.4-10.4) 12/16/22 00:47 Neut % (Auto) 86.1 % 12/16/22 00:47 Lymph % (Auto) 6.8 % 12/16/22 00:47 Brule % (Auto) 6.4 % 12/16/22 00:47 Eos % (Auto) 0.0 % 12/16/22 00:47 Baso % (Auto) 0.2 % 12/16/22 00:47 Neut # (Auto) 11.37 10^3/uL (1.8-7.7) H 12/16/22 00:47 Lymph # (Auto) 0.9 10^3/uL (0.8-4.8) 12/16/22 00:47 Brule # (Auto) 0.9 10^3/uL (0.2-0.9) 12/16/22 00:47 Eos # (Auto) 0.0 10^3/uL (0.0-0.8) 12/16/22 00:47 Baso # (Auto) 0.0 10^3/uL (0.0-0.1) 12/16/22 00:47 Nucleated RBC % (auto) 0 % 12/16/22 00:47 Nucleated RBCs # 0.0 /100WBC 12/16/22 00:47 Sodium 139 mmol/L (136-145) 12/16/22 00:47 Potassium 3.7 mmol/L (3.5-5.1) 12/16/22 00:47 Chloride 101 mmol/L (98-107) 12/16/22 00:47 Carbon Dioxide 26 mmol/L (22-29) 12/16/22 00:47 Anion Gap 15.7 (5-19) 12/16/22 00:47 BUN 19 mg/dL (8-23) 12/16/22 00:47 Creatinine 0.8 mg/dL (0.7-1.2) 12/16/22 00:47 GFR Calculation Not Reportable 12/16/22 00:47 Glucose 157 mg/dL (65-115) H 12/16/22 00:47 Calculated Osmolality 294 mOsm/kg (285-295) 12/16/22 00:47 Calcium 8.9 mg/dL (8.5-10.5) 12/16/22 00:47 Total Bilirubin 1.4 mg/dL (0.15-1.2) H 12/16/22 00:47 AST 22 U/L (0-40) 12/16/22 00:47 ALT 15 U/L (0-41) 12/16/22 00:47 Alkaline Phosphatase 54 U/L (40-130) 12/16/22 00:47 Total Protein 6.7 g/dL (6.6-8.7) 12/16/22 00:47 Albumin 4.2 g/dL (3.5-5.2) 12/16/22 00:47 Globulin 2.5 g/dL (1.3-4.6) 08 00:47 Discharge Plan Discharge Patient Disposition: Home Clinical Impression: Constipation in male Condition: Stable Prescriptions: No Action aspirin 81 mg tablet,chewable 81 mg PO DAILY PNV no.154-iron fumarate-folic 27 mg iron- 1 mg tablet 2 tab PO DAILY 90 Days Qty: 180 1RF alprazolam 1 mg tablet See Rx Instructions PO QID PRN (Reason: Anxiety) 30 Days Qty: 120 1RF Rx Instructions: 0.5 - 1mg orally four times daily PRN; metoprolol tartrate 25 mg tablet 75 mg PO DAILY 90 Days Qty: 270 1RF Rx Instructions: 2 tabs in the am 1 tab in the pm nitroglycerin 0.4 mg tablet, sublingual 0.4 mg SUBLINGUAL Q5M PRN (Reason: Chest Pain) Qty: 14 1RF Rx Instructions: do not exceed 3 doses per episode budesonide 0.5 mg/2 mL suspension for nebulization 0.5 mg inhalation BID Qty: 60 3RF cholecalciferol (vitamin D3) 50 mcg (2,000 unit) capsule 50 mcg PO DAILY 90 Days Qty: 90 1RF cyanocobalamin (vitamin B-12) 1,000 mcg capsule 1,000 mcg PO DAILY Qty: 90 4RF Trelegy Ellipta 100-62.5-25 mcg blister with device 1 inh inhalation DAILY Qty: 60 3RF polyethylene glycol 3350 17 gram/dose powder 17 g PO DAILY PRN (Reason: Constipation) magnesium hydroxide [Milk of Magnesia] 400 mg/5 mL Suspension 15 ml PO DAILY PRN (Reason: Constipation) hydrocodone-acetaminophen 10-325 mg Tablet 1 - 2 tab PO Q6H PRN (Reason: Pain) Calcium 600 + D(3) 600 mg-10 mcg (400 unit) tablet 1 tab PO DAILY Qty: 90 0RF epinephrine [EpiPen 2-Denilson] 0.3 mg/0.3 mL auto-injector 0.3 mg IM Q15M PRN (Reason: anaphylaxis) Qty: 2 2RF Rx Instructions: for 3 doses Discharge Orders: Discharge ED (Routine); Ordered 12/16/22 Ordered By: Sean Booker Referrals: Shoshana Stroud NP [Primary Care Provider] - Discharge Diet: Usual diet Discharge Activity: Increase activity as tolerated Patient Instructions: Constipation (ED) Activity Restrictions/Additional Instructions: Encourage plenty of water and fluids to help with any constipation, unless on a fluid restriction diet. Calcium sometimes can cause more constipation. Make sure to have a diet high in fiber. Try to maintain a normal active regimen. Continue with MiraLAX daily to help prevent constipation. Use milk of magnesia as needed for episodes of constipation. Follow-up with primary care for further instructions. Coding Level of Care Code ED School Photograph Editor for Jovan Lofton
--- NOTE | 2022-12-16 00:39 | CTR_ITS ---
PROCEDURE INFORMATION: Exam: CT Abdomen And Pelvis Without Contrast Exam date and time: 12/16/2022 1:21 AM Age: 82 years old Clinical indication: Abdominal tenderness and nausea and vomiting; Additional info: Abd pain, diarrhea, n/v TECHNIQUE: Imaging protocol: Computed tomography of the abdomen and pelvis without contrast. Radiation optimization: All CT scans at this facility use at least one of these dose optimization techniques: automated exposure control; mA and/or kV adjustment per patient size (includes targeted exams where dose is matched to clinical indication); or iterative reconstruction. REPORTING DATA: Count of CT and Cardiac NM exams in prior 12 months: This patient has received 0 known CTs and 0 known cardiac nuclear medicine studies in the 12 months prior to the current study. COMPARISON: CT abdomen pelvis w con* [id number] 06/02/2021 5:42 PM RADIATION DOSE METRICS: Total DLP (mGy-cm): 735.89 FINDINGS: Lungs: Mild pulmonary fibrosis at the lung bases. Diaphragm: Small hiatal hernia. Liver: Unremarkable. Gallbladder and bile ducts: Unremarkable. Pancreas: Unremarkable. Spleen: Unremarkable. Adrenal glands: Unremarkable. Kidneys and ureters: Unremarkable. No hydronephrosis. Stomach and bowel: Large stool in the rectum without perirectal inflammatory change. Colonic diverticulosis without CT evidence of acute diverticulitis. Appendix: No evidence of appendicitis. Intraperitoneal space: Unremarkable. Vasculature: Mild atherosclerotic calcifications of the abdomen and pelvis. Lymph nodes: Unremarkable. Urinary bladder: Unremarkable as visualized. Reproductive: Unremarkable as visualized. Bones/joints: No acute osseous abnormality. Soft tissues: Unremarkable. CT/CT abdomen pelvis wo con [id number] IMPRESSION: No acute findings in the abdomen and pelvis.
[2022-12-16] MEDS: sodium chloride 0.9% 500 ML 999 ML IV (00:55)
[2022-12-16 01:00] LABS: Basophils % 0.2 %; Hematocrit 38.5 % (37-53); Lymphocytes # 0.9 10^3/uL (0.8-4.8); Lymphocytes % 6.8 %; Mean Corpuscular HGB Conc 34.8 g/dL (30-55); Mean Corpuscular Hemoglobin 31.4 pg (27-33); Mean Corpuscular Volume 90.2 fl (82-101); Mean Platelet Volume 9.8 fL (7.4-10.4); Monocytes # 0.9 10^3/uL (0.2-0.9); Monocytes % 6.4 %; Neutrophils # 11.37 10^3/uL (1.8-7.7); Neutrophils % 86.1 %; Nucleated Red Blood Cells % 0 %; Platelet Count 188 10^3/cmm (157-399); Red Blood Count 4.27 10^6/uL (3.85-5.65); Red Cell Distribution Width 12.2 % (12.1-15.1); White Blood Count 13.21 10^3/uL (3.29-11.43)
[2022-12-16 01:21] LABS: Alanine Aminotransferase 15 U/L (0-41); Albumin Level 4.2 g/dL (3.5-5.2); Alkaline Phosphatase 54 U/L (40-130); Anion Gap 15.7 (5-19); Aspartate Amino Transferase 22 U/L (0-40); Blood Urea Nitrogen 19 mg/dL (8-23); Calcium 8.9 mg/dL (8.5-10.5); Carbon Dioxide 26 mmol/L (22-29); Chloride 101 mmol/L (98-107); Globulin 2.5 g/dL (1.3-4.6); Glucose 157 mg/dL (65-115); Osmolality Calculated 294 mOsm/kg (285-295); Potassium 3.7 mmol/L (3.5-5.1); Sodium 139 mmol/L (136-145); Total Bilirubin 1.4 mg/dL (0.15-1.2); Total Protein 6.7 g/dL (6.6-8.7)
--- NOTE | 2022-12-16 04:07 | PC.NURSE ---
RN into room at 0345. RN cleaned and dressed pt. RN informed pt that he would be waiting until morning for to pick him up as he is discharged and only drives in the daytime. Pt verbalized understanding. Room cleaned by EVS and RN. Pt did not want blood pressure cuff and pulse ox on in case he has to ambulate to the bedside commode. Provider aware. Pt currently asleep at this time.
--- NOTE | 2022-12-16 06:24 | PC.NURSE ---
RN called at 0600. informed of discharge information. verbalized understanding. requesting taxi bring pt home as she cannot drive and son cannot pick pt up. informed of payment required for ride. understood, stating I know everything costs money even if we just need help. I will pay them. Pt informed of taxi and understood. Pt sent home with enema as he is worried that he will not make it home if he receives it here. Awaiting ride at this time.
[2022-12-16 06:26] VITALS: BP 126/75; PULSE 100; RESP 16; TEMP 37.2; O2SAT 93
[2022-12-16] MEDS: Fleet Enema 133 mL Enema PR (06:31)
== END 2022-12-16 06:30 | disposition home or self-care (01) ==
PROVIDERS: Emergency Provider Nurse Practitioner Family; PCP Nurse Practitioner Family
DX: K59.00 Constipation, unspecified (principal); Z79.82 Long term (current) use of aspirin; J44.9 Chronic obstructive pulmonary disease, unspecified; I10 Essential (primary) hypertension
CPT/HCPCS: 51701; 74176; 80053; 85025; 96360; 99285; J7040

== ENCOUNTER 2023-04-27 11:26 | Emergency (ER) | payer MEDICARE, BC, SELFPAY ==
[2023-04-27 11:30] VITALS: BP 143/109; PULSE 125; RESP 15; TEMP 36.6; O2SAT 99; BMI 20.3
--- NOTE | 2023-04-27 11:59 | W.ED.GIBLEED ---
HPI - GI Bleed General: Chief complaint: GI Bleed Stated complaint: abd pain Time Seen by Provider: 04/27/23 11:29 History of Present Illness: Shamar is an 82-year-old male brought in by EMS. He was reportedly brought in for dark stools. The patient is not accompanied by any family. He is extremely hard of hearing and has dementia. He is repeating himself over and over. I cannot get a clear history as to why he is here. He tells me that he has had dark stools as dark as the EMELY of spades for months. He also tells me he has had some intermittent abdominal pain from his bellybutton down towards his bladder. After about 15 minutes trying to make progress with his review of systems and history of present illness, I ultimately dug through his paperwork and was able to find his 's number. I called her and she also is a poor historian. However, after sorting through a lot of information I found out that he has been suffering with intermittent constipation. He has to take stool softeners at home. He intermittently takes hydrocodone for chronic pain. His stools have been black although his states that their son told them that taking Pepto-Bismol can make your stools black. He has been taking Pepto-Bismol. She does not corroborate that his stools been black for months ; this has been more of an acute issue. She also tells me that he has a history of mesh in the abdomen from prior hernia repairs which she suggests has been causing him some chronic pain. Based on best available evidence, the chief complaint is black stool and constipation. Review of Systems Narrative: Review of systems is impaired as the patient has dementia and is also poor historian. I did go through review of systems with the patient. His only complaints are chronic low back pain, dark stools, occasional abdominal pain. Remainder of the review of systems was negative per the patient PFSH ED PFSH: Medical History Anxiety Arthritis COPD (chronic obstructive pulmonary disease) Dehydration, mild Family history of Alzheimer's disease Hearing loss Hypertension Memory deficit Seborrheic keratosis Syncope Tinnitus Surgical History History of coronary artery stent placement Family History Other CAD (coronary artery disease) Hyperlipidemia Hypertension Memory deficit Denies family history of Diabetes Clotting disorder Dementia Psychiatric illness Chronic kidney disease (CKD) Suicide Anesthesia complication Bleeding disorder Family history of premature coronary artery disease Lung disease Cancer Stroke Social History Smoking and tobacco/nicotine status: never used tobacco/nicotine Second hand smoke exposure: No Alcohol intake: never Substance/Drug Use: never Lives independently: Yes Household members: spouse Marital status: service: Yes Current occupational status: retired and disabled Pets and animals: No Do you think of yourself as: Straight/Heterosexual Current gender identity: Male Physical Exam Const: COMMON NORMALS: no limitations, alert and well nourished HENMT: COMMON NORMALS: normocephalic, atraumatic and external ears normal HEAD & SCALP: normocephalic and atraumatic EXTERNAL EAR: Yes external ears normal MOUTH: no muffled voice Eye: COMMON NORMALS: EOMs intact bilaterally, conjunctivae normal and no scleral icterus CONJUNCTIVA: Yes conjunctivae normal Neck/C-Spine: COMMON NORMALS: no JVD GENERAL: Yes normal visual inspection and Yes trachea midline Resp: COMMON NORMALS: normal respiratory effort, No use of accessory muscles and clear to auscultation bilaterally AUSCULTATION: clear to auscultation bilaterally Cardio: COMMON NORMALS: no JVD and regular rhythm RHYTHM: regular rhythm GI: COMMON NORMALS: Soft to palpation PALPATION: Yes Soft to palpation, No Firmness to palpation present (GI), Yes Tenderness to palpation present (GI) (Mild left lower quadrant tenderness) Details: LLQ, No Guarding due to palpation present (GI), No Hernia present, No Pulsatile mass present, No Ascites present, No Abdominal wall crepitus present and No Rebound tenderness present RECTAL EXAM: Yes heme negative stool and Yes other (Lots of semisoft stool in the rectal vault. Stool is dark in color. ) Back/Pelvis: OTHER: No midline spine tenderness. There is some myofascial tenderness in the lumbar paraspinal region bilaterally. Extremity: COMMON NORMALS: normal to inspection Neuro: COMMON NORMALS: moves all extremities, no focal motor deficits and no sensory deficits noted SENSORIUM/ORIENTATION: Yes alert SPEECH: speech normal Psych: COMMON NORMALS: cooperative, normal affect and speech normal SPEECH: Yes normal speech Skin: COMMON NORMALS: no rashes or lesions noted, turgor normal and no jaundice GENERAL SKIN EXAM: no rashes or lesions noted and turgor normal Course Vital Signs: Vital signs: Vital Signs Temperature 97.9 F 04/27/23 11:30 Pulse Rate 125 H 04/27/23 11:30 Respiratory Rate 15 04/27/23 11:30 Blood Pressure 143/109 04/27/23 11:30 Pulse Oximetry 99 04/27/23 11:30 Oxygen Delivery Me thod Room Air 04/27/23 11:30 MDM - GI Bleed Medical Decision Making 82-year-old male here with abdominal pain, constipation, dark stools. Rectal exam reveals dark stool that is Hemoccult negative. There is a great deal of stool in the rectal vault. History and review of systems limited by patient's dementia. He has noted to be tachycardic. An EKG is pending. Patient does not appear pale. He is not hypotensive. Differential diagnosis would include constipation, colitis, diverticulitis, GI bleed, stercoral colitis, neoplastic process, mesh complication, ileus, partial obstruction, and multiple others. I have ordered a CT scan of the abdomen and pelvis with contrast given the limited history. Workup has demonstrated what appears most c/w a sinus tachycardia on EKG. Lactic acid was added due to the tachycardia and poor history. It came back as normal. BUN and creatinine within normal limits. No significant electrolyte disturbance or metabolic acidosis or alkalosis. White blood cell count within normal limits. Update 1700 The patient has attempted to have a bowel movement but only getting small amounts out after the suppository. He will not let me do a digital rectal disimpaction. He says it lai too badly. He has not given a urine analysis. He will not let us do a Costello catheter. It appears that he has urinated some in the bedside commode. The CT scan of the abdomen pelvis shows fecal retention in the rectum but no other acute pathology. The patient's heart rate is still elevated although I do not see any signs of anemia, infection, dehydration. The EKG showed what I believed to be a sinus tachycardia with the T wave blunting with the P waves. It appears to be regular. Patient tells me he has a history of doing enemas at home. We will prescribe oral medications for constipation as well as medications including suppositories and enemas that he can use at home. Lab Data 04/27/23 12:20 04/27/23 12:20 Radiology Impressions Abdomen/Pelvis CT 04/27/23 12:32 IMPRESSION: 1. Findings of fecal impaction are similar to the previous examination. 2. Unchanged bilateral inguinal and left iliac lymphadenopathy is probably reactive. 3. Additional details as above. Unchanged. Laboratory Results WBC 10.38 10^3/uL (3.29-11.43) 04/27/23 12:20 RBC 4.48 10^6/uL (3.85-5.65) 04/27/23 12:20 Hgb 14.10 g/dL (11.27-16.99) 04/27/23 12:20 Hct 40.9 % (37-53) 04/27/23 12:20 MCV 91.3 fl (82-101) 04/27/23 12:20 MCH 31.5 pg (27-33) 04/27/23 12:20 MCHC 34.5 g/dL (30-55) 04/27/23 12:20 RDW 12.8 % (12.1-15.1) 04/27/23 12:20 Plt Count 195 10^3/cmm (157-399) 04/27/23 12:20 MPV 8.8 fL (7.4-10.4) 04/27/23 12:20 Neut % (Auto) 84.8 % 04/27/23 12:20 Lymph % (Auto) 7.7 % 04/27/23 12:20 Brooke % (Auto) 5.9 % 04/27/23 12:20 Eos % (Auto) 0.8 % 04/27/23 12:20 Baso % (Auto) 0.3 % 04/27/23 12:20 Neut # (Auto) 8.81 10^3/uL (1.8-7.7) H 04/27/23 12:20 Lymph # (Auto) 0.8 10^3/uL (0.8-4.8) 04/27/23 12:20 Brooke # (Auto) 0.6 10^3/uL (0.2-0.9) 04/27/23 12:20 Eos # (Auto) 0.1 10^3/uL (0.0-0.8) 04/27/23 12:20 Baso # (Auto) 0.0 10^3/uL (0.0-0.1) 04/27/23 12:20 Nucleated RBC % (auto) 0 % 04/27/23 12:20 Nucleated RBCs # 0.0 /100WBC 04/27/23 12:20 PT 14.10 SECONDS (12.1-14.9) 04/27/23 12:20 INR 1.06 (0.8-1.2) 04/27/23 12:20 APTT 27.0 SECONDS (23.9-36.7) 04/27/23 12:20 Sodium 137 mmol/L (136-145) 04/27/23 12:20 Potassium 3.5 mmol/L (3.5-5.1) 04/27/23 12:20 Chloride 100 mmol/L (98-107) 04/27/23 12:20 Carbon Dioxide 25 mmol/L (22-29) 04/27/23 12:20 Anion Gap 15.5 (5-19) 04/27/23 12:20 BUN 16 mg/dL (8-23) 04/27/23 12:20 Creatinine 0.7 mg/dL (0.7-1.2) 04/27/23 12:20 GFR Calculation Not Reportable 04/27/23 12:20 Glucose 156 mg/dL (65-115) H 04/27/23 12:20 Calculated Osmolality 288 mOsm/kg (285-295) 04/27/23 12:20 Lactic Acid 2.0 mmol/L (0.5-2.2) 04/27/23 12:20 Calcium 9.1 mg/dL (8.5-10.5) 04/27/23 12:20 Total Bilirubin 1.4 mg/dL (0.15-1.2) H 04/27/23 12:20 AST 28 U/L (0-40) 04/27/23 12:20 ALT 21 U/L (0-41) 04/27/23 12:20 Alkaline Phosphatase 77 U/L (40-130) 04/27/23 12:20 Total Protein 7.5 g/dL (6.6-8.7) 04/27/23 12:20 Albumin 4.0 g/dL (3.5-5.2) 04/27/23 12:20 Globulin 3.5 g/dL (1.3-4.6) 04/27/23 12:20 Blood Type B Positive 04/27/23 12:20 Rho(D) Type Rh positive 04/27/23 12:20 Antibody Screen Negative 04/27/23 12:20 All radiology interpretation(s) finalized by discharge ED provider radiology interpretation(s): CT documented above EKG Data EKG 1: Interpretation: Sinus tachycardia, rate 126, axis within normal limits, QRS duration 90 ms, PVC x 1, nonspecific ST and T wave abnormalities are noted, no concerning ST segment elevations. QTc within normal limits. Discharge Plan Discharge Patient Disposition: Home Clinical Impression: Fecal impaction in rectum Condition: Stable Prescriptions: New Fleet Glycerin (Adult) Suppository 1 supp UT BID PRN (Reason: constipation) Qty: 25 0RF Fleet Enema Extra 19-7 gram/197 mL enema 197 ml UT DAILY 3 Days Qty: 230 3RF Miralax 17 gram powder in packet 34 g PO BID PRN (Reason: constipation) 30 Days Qty: 100 0RF No Action aspirin 81 mg tablet,chewable 81 mg PO DAILY PNV no.154-iron fumarate-folic 27 mg iron- 1 mg tablet 2 tab PO DAILY 90 Days Qty: 180 1RF metoprolol tartrate 25 mg tablet 75 mg PO DAILY 90 Days Qty: 270 1RF Rx Instructions: 2 tabs in the am 1 tab in the pm nitroglycerin 0.4 mg tablet, sublingual 0.4 mg SUBLINGUAL Q5M PRN (Reason: Chest Pain) Qty: 14 1RF Rx Instructions: do not exceed 3 doses per episode budesonide 0.5 mg/2 mL suspension for nebulization 0.5 mg inhalation BID Qty: 60 3RF cholecalciferol (vitamin D3) 50 mcg (2,000 unit) capsule 50 mcg PO DAILY 90 Days Qty: 90 1RF cyanocobalamin (vitamin B-12) 1,000 mcg capsule 1,000 mcg PO DAILY Qty: 90 4RF alprazolam 1 mg tablet See Rx Instructions PO QID PRN (Reason: Anxiety) 30 Days Qty: 120 1RF Rx Instructions: 0.5 - 1mg orally four times daily PRN; polyethylene glycol 3350 17 gram/dose powder 17 g PO DAILY PRN (Reason: Constipation) magnesium hydroxide [Milk of Magnesia] 400 mg/5 mL Suspension 15 ml PO DAILY PRN (Reason: Constipation) hydrocodone-acetaminophen 10-325 mg Tablet 1 - 2 tab PO Q6H PRN (Reason: Pain) calcium carbonate-vitamin D3 [Calcium 600 + D(3)] 600 mg-10 mcg (400 unit) tablet 1 tab PO DAILY Qty: 90 0RF Discharge Orders: Discharge ED (Routine); Ordered 04/27/23 Ordered By: Omar Cuevas Referrals: Shoshana Stroud BIOINFORMATICS SPECIALIST [Primary Care Provider] - 4-7 days (ER follow-up) Discharge Diet: Usual diet Patient Instructions: Constipation (ED), Opioid Safety, Pain Management Activity Restrictions/Additional Instructions: Shamar has stool in his rectum. He would not allow us to disimpact it. We did give him a suppository. We also gave him some medicine by mouth to help him try and pass the stool. His stool tested negative for blood. His hemoglobin was normal. A CT scan of the abdomen and pelvis did not show any acute findings other than the constipation in his rectum. He was prescribed MiraLAX, suppositories, and enemas to help with intermittent constipation and fecal impaction of the rectum. His heart rate was elevated but he was asymptomatic. Please follow-up with his primary care doctor for this. Coding Level of Care Code ED Branch Logistics Supervisor for Jovan Lofton
[2023-04-27 12:30] LABS: Basophils % 0.3 %; Eosinophils # 0.1 10^3/uL (0.0-0.8); Eosinophils % 0.8 %; Hematocrit 40.9 % (37-53); Lymphocytes # 0.8 10^3/uL (0.8-4.8); Lymphocytes % 7.7 %; Mean Corpuscular HGB Conc 34.5 g/dL (30-55); Mean Corpuscular Hemoglobin 31.5 pg (27-33); Mean Corpuscular Volume 91.3 fl (82-101); Mean Platelet Volume 8.8 fL (7.4-10.4); Monocytes # 0.6 10^3/uL (0.2-0.9); Monocytes % 5.9 %; Neutrophils # 8.81 10^3/uL (1.8-7.7); Neutrophils % 84.8 %; Nucleated Red Blood Cells % 0 %; Platelet Count 195 10^3/cmm (157-399); Red Blood Count 4.48 10^6/uL (3.85-5.65); Red Cell Distribution Width 12.8 % (12.1-15.1); White Blood Count 10.38 10^3/uL (3.29-11.43)
--- NOTE | 2023-04-27 12:32 | CTR_ITS ---
PROCEDURE INFORMATION: Exam: CT Abdomen And Pelvis With Contrast Exam date and time: 04/27/2023 3:19 PM Age: 82 years old Clinical indication: Other: Black stool; Additional info: Black stool for months . Never had egd/colonoscopy, llq ttp TECHNIQUE: Imaging protocol: Computed tomography of the abdomen and pelvis with contrast. Radiation optimization: All CT scans at this facility use at least one of these dose optimization techniques: automated exposure control; mA and/or kV adjustment per patient size (includes targeted exams where dose is matched to clinical indication); or iterative reconstruction. 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 Diaphragm: Unchanged small hiatal hernia. Liver: Normal. No mass. Gallbladder and bile ducts: Normal. No calcified stones. No ductal dilation. Pancreas: Normal. No ductal dilation. Spleen: Normal. No splenomegaly. Adrenal glands: Normal. No mass. Kidneys and ureters: Normal. No hydronephrosis. Stomach and bowel: Findings of fecal impaction are similar to the previous examination. Otherwise, unremarkable. Appendix: No evidence of appendicitis. Intraperitoneal space: Unremarkable. No free air. No significant fluid collection. Vasculature: Unchanged small amount of arterial calcification. A retroaortic left renal vein is a normal congenital variant. Otherwise, unremarkable. Lymph nodes: Unchanged bilateral inguinal lymphadenopathy. Unchanged left iliac lymphadenopathy. No other lymphadenopathy. Urinary bladder: Unremarkable as visualized. Reproductive: Unremarkable as visualized. Bones/joints: Multilevel spondylosis ranging from mild to severe. Spinal ankylosis. Unchanged. Soft tissues: Unremarkable. CT/CT abdomen pelvis w con* [id number] IMPRESSION: 1. Findings of fecal impaction are similar to the previous examination. 2. Unchanged bilateral inguinal and left iliac lymphadenopathy is probably reactive. 3. Additional details as above. Unchanged.
--- NOTE | 2023-04-27 12:33 | ECG_ITS ---
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 Measurements Intervals [place] Rate: 126 P: 74 AL: 191 QRS: 7 QRSD: 90 T: 149 QT: 249 QTc: 361 Interpretive Statements SINUS TACHYCARDIA WITH OCCASIONAL VENTRICULAR PREMATURE COMPLEXES NONSPECIFIC ST & T-WAVE ABNORMALITY Compared to ECG 11/13/2021 00:12:17 Ventricular premature complex(es) now present T-wave abnormality now present Sinus rhythm no longer present First degree AV block no longer present Electronically Signed On 04-27-2023 17:51:50 CHILD CARE PROVIDER by Barber Sr M.D. [id number]
[2023-04-27 12:46] LABS: INR 1.06 (0.8-1.2)
[2023-04-27 12:54] LABS: Alanine Aminotransferase 21 U/L (0-41); Alkaline Phosphatase 77 U/L (40-130); Anion Gap 15.5 (5-19); Aspartate Amino Transferase 28 U/L (0-40); Blood Urea Nitrogen 16 mg/dL (8-23); Calcium 9.1 mg/dL (8.5-10.5); Carbon Dioxide 25 mmol/L (22-29); Chloride 100 mmol/L (98-107); Globulin 3.5 g/dL (1.3-4.6); Glucose 156 mg/dL (65-115); Osmolality Calculated 288 mOsm/kg (285-295); Potassium 3.5 mmol/L (3.5-5.1); Sodium 137 mmol/L (136-145); Total Bilirubin 1.4 mg/dL (0.15-1.2); Total Protein 7.5 g/dL (6.6-8.7)
[2023-04-27] MEDS: sodium chloride 0.9% 1,000 ML 999 ML IV (13:30)
[2023-04-27] MEDS: lactulose oral liq 20 gm/30 mL UDC 30 GM PO (13:33)
[2023-04-27] MEDS: methylnaltrexone 12 /0.6 mL INJ 12 MG SUBCUT (13:36)
[2023-04-27] MEDS: glycerin adult supp 1 EACH PR (14:42)
[2023-04-27] MEDS: iohexol 350 mg/mL 500 mL Btl (per mL) IV (15:41)
[2023-04-27 17:33] VITALS: BP 138/96; PULSE 125; RESP 16; O2SAT 98
[2023-04-27 18:11] VITALS: BP 145/78; PULSE 115; RESP 16; O2SAT 97
== END 2023-04-27 18:34 | disposition home or self-care (01) ==
PROVIDERS: Emergency Provider Emergency Medicine; PCP Nurse Practitioner Family
DX: K56.41 Fecal impaction (principal); Z79.82 Long term (current) use of aspirin; J44.9 Chronic obstructive pulmonary disease, unspecified; I10 Essential (primary) hypertension; R10.30 Lower abdominal pain, unspecified
CPT/HCPCS: 36415; 74177; 80053; 83605; 85025; 85610; 85730; 86850; 86900; 93005; 96372; 99285; J2212; J7030; Q9967